=== PATIENT | female | born 1950 | race Caucasian/White ===

== ENCOUNTER → 2024-01-16 07:27 | Outpatient (REF) | payer MEDICARE, SELFPAY | LOC: EMG 07:27 | PROVIDERS: ATTENDING PHYSICIAN Pain Medicine Interventional Pain Medicine; FAMILY PHYSICIAN Physician Assistant Medical | DX: G56.02 Carpal tunnel syndrome, left upper limb (principal); R20.2 Paresthesia of skin | CPT/HCPCS: 95886; 95911 ==

== ENCOUNTER → 2024-03-15 10:16 | Outpatient (REF) | payer MEDICARE, SELFPAY | LOC: PAVMRI 10:16 | PROVIDERS: ATTENDING PHYSICIAN Physician Assistant Surgical; FAMILY PHYSICIAN Physician Assistant Medical | DX: M54.16 Radiculopathy, lumbar region (principal); M54.50 Low back pain, unspecified; M48.061 Spinal stenosis, lumbar region without neurogenic claudication; M47.817 Spondylosis without myelopathy or radiculopathy, lumbosacral region; M41.86 Other forms of scoliosis, lumbar region | CPT/HCPCS: 72148 ==

== ENCOUNTER 2024-03-25 18:33 | Emergency (ER) | payer MEDICARE, SELFPAY ==
[2024-03-25 18:37] VITALS: BP 108/80
--- NOTE | 2024-03-25 20:14 | ED.GENMED ---
History of Present Illness
General
Chief Complaint: Abdominal Pain
Source: patient
Exam Limitations: none
Time Seen by Provider: 03/25/24 19:53
Nursing documentation reviewed up to this point in time: agreed with
Travel History
Have you had any contact with someone who has COVID-19?: No
Do you have any symptoms of coronavirus? Fever > 100 degrees, chills, cough, shortness of breath, sore throat, loss of taste or smell, muscle aches, or headache?: No
History of Present Illness
History of Present Illness:
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 Abdominal pain described as sharp, nonradiating, without any
alleviating or exacerbating factors. Denies vomiting. Denies trauma. Patient has had normal bowel movements since onset of symptoms, without improvement her pain. However, patient states that gradually, her pain has improved since arrival to ED.
At the time exam ED, patient states that her abdominal pain is completely gone. Denies previous history of similar symptoms.
Past History
Past History
ED Past Medical History: GERD, HTN and Other (Arthritis)
ED Past Surgical History: Orthopedic and Other
Social History
Tobacco: Non-smoker
Review of Systems
Review of Systems
Allergies reviewed?: Yes
All Other Systems: ROS reviewed and negative except as documented in HPI and ROS
Constitutional: Reports no symptoms; Denies fever
Respiratory: Reports no symptoms
Cardiac: Reports no symptoms
ABD/GI: Reports abdominal pain; Denies nausea, vomiting or diarrhea
Musculoskeletal: Reports no symptoms
Skin: Reports no symptoms
Neurological: Reports no symptoms
Phy Exam
Physical Exam
Physical Exam:
Physical Exam
General: no apparent distress, not acutely ill. afebrile
Head: nc/at. eomi
Neck: supple. no meningeal signs.
Heart: s1/s2 regular rate and rhythm, no murmur. equal radial pulses.
Lungs: no acute respiratory distress. clear bilaterally
Abdomen: normal bowel sounds. not tender. no distention.
Neuro: alert and oriented. no focal neurological deficits
Skin: no rash
Psychiatric: well kept. interactive and cooperative
Extremities: no edema. no calf tenderness.
Course
Orders/Labs/Results
Orders:
Orders
03/25/24 20:04
CR Obstruct Series W/pa Chest Urgent
Comment:
Reason For Exam: abdominal pain
Vital Signs
Initial and Last Documented VS:
Initial Vital Signs
Temp Pulse Resp BP Pulse Ox
97.8 F 77 18 108/80 100
03/25/24 18:37 03/25/24 18:37 03/25/24 18:37 03/25/24 18:37 03/25/24 18:37
Last Documented Vital Signs
Temp Pulse Resp BP Pulse Ox
97.8 F 77 18 108/80 100
03/25/24 18:37 03/25/24 18:37 03/25/24 18:37 03/25/24 18:37 03/25/24 18:37
MDM/Problems Addressed
MDM/Problems Addressed:
Patient with nonspecific abdominal pain, of sudden onset, which now has resolved spontaneously. Discussed possibly obtaining x-ray to evaluate for potential ileus versus partial small bowel obstruction versus other etiology. However, this time,
patient and spouse feel comfortable going home without any further workup. Will return to ED with recurrent abdominal pain.
*Critical Care Note
Total Time (30-74mins, 75-104mins- exclusive of procedures): Not Applicable
ED Attending Note
-
Portions of this chart may have been created with voice recognition software.� Occasional wrong word or��sound alike� substitutions may have occurred due to the inherent limitations of voice recognition software.
Discharge Plan
Departure
Patient Disposition: Home (Routine Discharge)
Date of Disposition: 03/25/24
Time of Disposition: 20:14
Patient with high blood pressure during this ER visit?: No
Discharge Problem:
Abdominal pain
Instructions: Abdominal Pain
Prescriptions:
No Action
multivitamin Tablet
1 tab PO DAILY
fluoxetine 40 mg Capsule
40 mg PO DAILY
pravastatin 40 mg Tablet
40 mg PO DAILY
donepezil 10 mg Tablet
10 mg PO DAILY
pantoprazole [Protonix] 40 mg Tablet,Delayed Release (Dr/Ec)
40 mg PO DAILY
vitamin B complex Tablet
1 tab PO DAILY
aspirin 81 mg Tablet
81 mg PO DAILY
lisinopril-hydrochlorothiazide 10-12.5 mg Tablet
1 tab PO DAILY
gabapentin 300 mg Tablet
900 mg PO HS
clopidogrel 75 mg Tablet
75 mg PO DAILY Qty: 19 0RF
Referrals:
Barb Bradshaw PA-C [Family Provider] -
Activity Restrictions/Additional Instructions:
As discussed, please follow up with your primary care physician for further evaluation and treatment.
Interventions
Interventions:
*General Assessment Last Done: 03/25/24 18:40
*Nursing Disposition Last Done: 03/25/24 20:21
MU-Yqhfwf-Sohvsnnurd Assessment Last Done: 03/25/24 20:20
Discharge Date and Time
Discharge Date/Time: 03/25/24 20:21
Print Language: [place]
== END 2024-03-25 20:21 | disposition home or self-care (01) ==
LOC: EMR 18:33
PROVIDERS: EMERGENCY PHYSICIAN Emergency Medicine; FAMILY PHYSICIAN Physician Assistant Medical
DX: R10.9 Unspecified abdominal pain (principal); R14.0 Abdominal distension (gaseous); Z98.84 Bariatric surgery status
CPT/HCPCS: 99281

== ENCOUNTER → 2024-07-17 15:29 | Outpatient (REF) | payer MEDICARE, SELFPAY | LOC: HWRAD 15:29 | PROVIDERS: ATTENDING PHYSICIAN Physician Assistant Medical | DX: R07.81 Pleurodynia (principal) | CPT/HCPCS: 71101 ==

== ENCOUNTER → 2024-08-16 10:09 | Outpatient (REF) | payer MEDICARE, SELFPAY | LOC: HWWDC 10:09 | PROVIDERS: ATTENDING PHYSICIAN Physician Assistant Medical | DX: Z78.0 Asymptomatic menopausal state (principal); Z12.31 Encounter for screening mammogram for malignant neoplasm of breast | CPT/HCPCS: 77063; 77067; 77080 ==

== ENCOUNTER → 2025-02-18 16:25 | Outpatient (REF) | payer MEDICARE, SELFPAY | LOC: HWRAD 16:25 | PROVIDERS: ATTENDING PHYSICIAN Internal Medicine Rheumatology; FAMILY PHYSICIAN Physician Assistant Medical | DX: M79.641 Pain in right hand (principal); M79.642 Pain in left hand; M79.673 Pain in unspecified foot | CPT/HCPCS: 73130; 73630 ==

== ENCOUNTER 2025-09-08 11:47 | Emergency (ER) | payer MEDICARE, SELFPAY ==
[2025-09-08 11:50] VITALS: BP 109/68
[2025-09-08 12:33] LABS: COVID-19 Antigen Negative (Negative)
--- NOTE | 2025-09-08 13:23 | ED.GENMED ---
History of Present Illness
General
Chief Complaint: Cough
Source: patient and spouse
Time Seen by Provider: 09/08/25 13:15
History of Present Illness
History of Present Illness:
74-year-old female with past medical history of mild cognitive impairment, hypertension, gcm-[id number]-sohhvqetq diabetes presenting to the emergency department for evaluation after having a continued cough for the last 3 weeks despite completing a
course of a Z-Joe and prednisone taper. She states the cough is somewhat mild and nonproductive, no associated fevers, chills, rigors. 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 No recent travel or known sick contacts.
Patient is without any other concerns presently. She notes a history of former smoking but quit at least 10 years ago.
Past History
Past History
ED Past Medical History: GERD, HTN and Other (Arthritis)
ED Past Surgical History: Orthopedic and Other
Social History
Tobacco: Non-smoker
Alcohol: None
Drug: None
Personal:
Living: with family
Review of Systems
Review of Systems
All Other Systems: ROS reviewed and negative except as documented in HPI and ROS
Phy Exam
Physical Exam
Physical Exam:
GENERAL: Alert , in no apparent distress
HEAD: Normocephalic atraumatic
EYE: conjunctiva clear
NECK: Supple
ENT: o/p clr, mmm.
CARDIAC: Regular rate and rhythm
LUNGS: Clear breath sounds bilaterally, no acute respiratory distress, no wheezes/rales/rhonchi
NEUROLOGICAL: Alert and oriented
SKIN: Warm and dry, skin intact.
MUSCULOSKELETAL: well perfused.
PSYCH: Normal and appropriate interaction.
Scores
Heart Failure Risk
Heart Failure Risk Score: Not Applicable
Heart Score for Chest Pain Patients
STEMI patient?: Not applicable
Withdrawal Assessment of Alcohol
Withdrawal Assessment Completed?: Not applicable
Course
Orders/Labs/Results
Orders:
Orders
09/08/25 11:53
CR Chest - 2 Views Urgent
Comment:
Reason For Exam: cough x3 weeks
09/08/25 11:55
COVID-19 Antigen Urgent
Source: Nasal Swab
Influenza A+B Rapid Molecular Urgent
CHERIE Source: Nasal Swab
Specimen Description:
Vital Signs
Initial and Last Documented VS:
Initial Vital Signs
Temp Pulse Resp BP Pulse Ox
98.3 F 95 17 109/68 98
09/08/25 11:50 09/08/25 11:50 09/08/25 11:50 09/08/25 11:50 09/08/25 11:50
Last Documented Vital Signs
Temp Pulse Resp BP Pulse Ox
98.5 F 82 20 141/75 96
09/08/25 13:33 09/08/25 13:33 09/08/25 13:33 09/08/25 13:33 09/08/25 13:33
MDM/Problems Addressed
Differential Diagnosis Includes:
Covid
Flu
Other Viral Etiology
Pneumonia
Bronchitis
MDM/Problems Addressed:
74-year-old female presenting to the ER for evaluation of cough for the last 3 weeks, no improvement with Z-Joe and a steroid taper. COVID and flu testing negative, chest x-ray shows a right upper lobe lung infiltrate consistent with pneumonia. I
did consider obtaining CT imaging given the chest x-ray findings however patient is in no acute respiratory distress, afebrile and overall well-appearing. Will prescribe a course of cefdinir and doxycycline. Patient currently does not have a
primary care provider so information was sent to the primary care referral line for patient to help obtain a primary care provider. I did discuss with the patient that if she is not feeling any better within the next 72 hours that I would recommend
she return to the ER for further reevaluation to ensure no other complications. Patient and spouse both expressed understanding.
*Radiology
Radiology exam reviewed: preliminary read by ED provider (RUL pneumonia)
*Pulse Oximetry
SaO2: 98
Oxygen Mode of Delivery: Room air
Patient hypoxic: no
*Critical Care Note
Total Time (30-74mins, 75-104mins- exclusive of procedures): Not Applicable
ED Attending Note
-
Portions of this chart may have been created with voice recognition software.� Occasional wrong word or��sound alike� substitutions may have occurred due to the inherent limitations of voice recognition software.
Discharge Plan
Departure
Patient Disposition: Home (Routine Discharge)
Date of Disposition: 09/08/25
Time of Disposition: 13:23
Patient with high blood pressure during this ER visit?: No
Discharge Problem:
Pneumonia
Instructions: Pneumonia, Adult (DC)
Prescriptions:
New
cefdinir 300 mg capsule
300 mg PO BID 10 Days Qty: 20 0RF
doxycycline hyclate 100 mg capsule
100 mg PO BID 10 Days Qty: 20 0RF
No Action
multivitamin Tablet
1 tab PO DAILY
fluoxetine 40 mg Capsule
40 mg PO DAILY
pravastatin 40 mg Tablet
40 mg PO DAILY
donepezil 10 mg Tablet
10 mg PO DAILY
pantoprazole [Protonix] 40 mg Tablet,Delayed Release (Dr/Ec)
40 mg PO DAILY
vitamin B complex Tablet
1 tab PO DAILY
aspirin 81 mg Tablet
81 mg PO DAILY
lisinopril-hydrochlorothiazide 10-12.5 mg Tablet
1 tab PO DAILY
gabapentin 300 mg Tablet
900 mg PO HS
clopidogrel 75 mg Tablet
75 mg PO DAILY Qty: 19 0RF
Referrals:
NONE,* [Family Provider, Internal Medicine]
Interventions
Interventions:
*Risk Screen - Suicide Last Done: 09/08/25 11:52
*General Assessment Last Done: 09/08/25 11:52
*Neglect/Abuse Screening Last Done: 09/08/25 11:52
*ED- Fall Risk Assessment Last Done: 09/08/25 13:35
*ED COVID-19 Vaccine History Last Done: 09/08/25 11:52
*ED Influenza Vaccine History Last Done: 09/08/25 11:52
*Nursing Disposition Last Done: 09/08/25 13:35
ED- Pulmonary Assessment Last Done: 09/08/25 13:33
Discharge Date and Time
Discharge Date/Time: 09/08/25 13:36
Print Language: AZERBAIJANI
[2025-09-08 13:33] VITALS: BP 141/75; BMI 18.9
== END 2025-09-08 13:36 | disposition home or self-care (01) ==
LOC: EMR 11:47
PROVIDERS: EMERGENCY PHYSICIAN Student in an Organized Health Care Education/Training Program
DX: J18.9 Pneumonia, unspecified organism (principal); E11.9 Type 2 diabetes mellitus without complications; I10 Essential (primary) hypertension; Z11.52 Encounter for screening for COVID-19
CPT/HCPCS: 99284; 71046; 87502; 87811

== ENCOUNTER 2025-09-10 23:00 | Inpatient (IN) | payer MEDICARE, SELFPAY ==
[2025-09-10] VITALS (7 sets, daily range): BP systolic 107–133; BP diastolic 65–80; BMI 25.4
--- NOTE | 2025-09-10 18:48 | ED.GENMED ---
History of Present Illness
<XIAO Page - Last Filed: 09/11/25 01:35>
General
Chief Complaint: Weakness
Exam Limitations: none
Time Seen by Provider: 09/10/25 18:07
Nursing documentation reviewed up to this point in time: agreed with
History of Present Illness
History of Present Illness:
Patient is 74-year-old female presents back to the ER with cough. Patient has had cough for the past 3 weeks. Her who is a physician put her on Medrol Dosepak and Zithromax about relief.
Patient was seen in the ER 2 days ago dx with a RUL pneumonia and prescribed cefdinir and doxycycline. Patient continues to have cough. daughter reports our patient vomited last night and today which prompted her to come back to the ER. She was
scheduled to see her family doctor today at 5:30 pm but they recommended to come to the ER. Patient herself denies any shortness of breath however her daughter feels that she is short winded with exertion.
also at bedside reports patient has some cognitive issues early dementia and he is not sure if she is taking antibiotics as recommended in addition he reports she is very weak.
Past History
<XIAO Page - Last Filed: 09/11/25 01:35>
Past History
ED Past Medical History: GERD, HTN and Other (Arthritis)
ED Past Surgical History: Orthopedic and Other
Social History
Tobacco: Non-smoker
Alcohol: None
Drug: None
Personal:
Living: with family
Phy Exam
<XIAO Page - Last Filed: 09/11/25 01:35>
General Physical Exam
General Presentation: no apparent distress
General age: appears stated age
General Skin: warm and dry
General Habitus: elderly
General Mental: alert
General Hydration: appears well hydrated
Cardiovascular Exam
Cardiovascular Exam: regular rate/rhythm, no murmur and normal peripheral pulses
Pulmonary Exam
Pulmonary Exam: lungs clear and no respiratory distress
Neurological Exam
Neurological Exam: alert and oriented x3
Musculoskeletal Exam
Musculoskeletal Exam: full ROM
Skin Exam
Skin Exam: normal color and warm/dry
Psychiatric Exam
Psychiatric Exam: normal mood/affect
Course
<XIAO Page - Last Filed: 09/11/25 01:35>
Orders/Labs/Results
Orders:
Orders
09/10/25 18:40
IV Insert/Care/Rem.- Treatment PRN
09/10/25 18:41
Electrocardiogram (*1) Stat
Reason for Study: Other
Other Reason for Exam: chest pain
Cardiac Monitoring- Treatment ONCE
EKG- Treatment ONCE
09/10/25 18:55
CT Chest W/o Iv Contrast Urgent
Comment:
Reason For Exam: cough recent pneumonia?
09/10/25 19:08
0.9% Sodium Chloride 1000 ml [Nss] 1,000 ml IV BOLUS
09/10/25 19:14
Complete Blood Count/With Diff Urgent
Comprehensive Metabolic Panel Urgent
09/10/25 21:05
Cefepime HCl [Maxipime] 1,000 mg IV NOW STA
09/10/25 21:18
Sterile Water [Sterile Water For Injection] 10 ml .ROUTE .STK-MED ONE
Vancomycin [Vancocin] 1,500 mg 0.9% Sodium Chloride 500 ml [Nss] 500 ml IV NOW
09/10/25 22:32
Admit/Transfer Patient As Directed
Co-Sign Provider:
Level of Care: Inpatient admission
Assign to:: Medical/Surgical
Physician / Group: htay
Diagnosis: Partially treated severe complex PNA @ [facility]
Reason for Hospitalization: Partially treated severe complex PNA @ [facility]
Expected length of stay greater than two midnights?: Yes
ELOS- Estimated Length of Stay in days: 3
I certify the patient meets the requirements for IP care: Yes
09/10/25 22:34
Code Status As Directed
Resuscitation Status: Full Code
09/11/25 01:22
Lactic Acid Q6H
09/11/25 01:22
Consult Notification Routine
Specialty to Notify: Infectious Disease
Consult Notification Routine
Specialty to Notify: Pulmonary
INFECTIOUS DISEASE CONSULT Routine
Consulting Provider: Adriana Bertrand
Was physician already notified: No
Reason for consult: Partially treated severe complex PNA @ R[facility] - failed OP ABx
PULMONARY CONSULT Routine
Consulting Provider: Katherin Jones
Was physician already notified: No
Reason for consult: Partially treated severe complex PNA @ R[facility]
Legionella Urinary Antigen Routine
CHERIE Source: Urine
Specimen Description:
Respiratory Culture/Gram Stain Urgent
CHERIE Source: Sputum
Specimen Description:
Strep pneumoniae Antigen Routine
CHERIE Source: Urine
Specimen Description:
Activity As Directed
Activity Level: Out of Bed-Early Mobility
Intake/ Output As Directed
Frequency: Per unit guidelines
Vital Signs As Directed
Frequency: Per unit guidelines
Weight As Directed
Frequency: Once
Comment: on admission
Pt Eval And Treat Routine
Activity Level: With Assistance
DX Deep Vein Thrombosis Video Routine
09/11/25 Breakfast
Cholesterol Lowering
Cholesterol Lowering: Sodium, 2 Gram
Basic Metabolic Panel IN AM
Complete Blood Count/No Diff IN AM
Cefepime HCl [Maxipime] 2,000 mg IV Q8H
09/11/25 08:00
Aspirin Low Dose EC [Aspir Low (Enteric Coated)] 81 mg PO DAILY
Donepezil HCl [Aricept] 10 mg PO DAILY
Doxycycline [Vibramycin] 100 mg PO BID
Fluoxetine HCl [Prozac] 40 mg PO DAILY
Guaifenesin [Mucinex] 600 mg PO Q12
Pantoprazole [Protonix] 40 mg PO DAILY
09/11/25 18:00
Enoxaparin Sodium [Lovenox] 40 mg SC QPM
09/11/25 22:00
Gabapentin [Neurontin] 900 mg PO HS
Pravastatin Sodium [Pravachol] 40 mg PO HS
Abnormal Lab Results
09/10/25
19:14
WBC 14.4 H 10^3/uL
(4.8-10.8)
RBC 3.44 L 10^6/uL
(4.20-5.40)
Hgb 9.1 L g/dL
(12.0-16.0)
Hct 28.1 L %
(37.0-47.0)
MCH 26.5 L pg
(27.0-31.0)
MCHC 32.4 L g/dL
(33.0-37.0)
Abs Immat Gran (auto) 0.1 H 10^3/uL
(0-0.05)
Absolute Neuts (auto) 11.5 H 10^3/uL
(1.4-6.5)
Absolute Monos (auto) 0.9 H 10^3/uL
(0.1-0.6)
Immature Gran % 0.8 H %
(0-0.5)
Neutrophils % 79.8 H %
(42.2-75.2)
Lymphocytes % 11.7 L %
(20.5-51.1)
BUN 22 H mg/dl
(7-17)
Glucose 112 H mg/dl
(70-99)
Total Protein 6.2 L g/dl
(6.3-8.2)
Albumin 3.2 L g/dl
(3.5-5.0)
10/14/25 19:14
09/10/25 19:14
Vital Signs
Initial and Last Documented VS:
Initial Vital Signs
Temp Pulse Resp BP Pulse Ox
98.5 F 86 16 125/77 98
09/10/25 18:00 09/10/25 18:00 09/10/25 18:00 09/10/25 18:00 09/10/25 18:00
Last Documented Vital Signs
Temp Pulse Resp BP Pulse Ox
98.5 F 71 17 124/80 96
09/10/25 19:04 09/11/25 01:00 09/11/25 01:00 09/11/25 01:00 09/11/25 01:00
Employee Communications Manager consulted with Physician
Employee Communications Manager consulted with physician?: Yes
Name of Physician Consulted: Cesar
<Brady Guerrero, DO - Last Filed: 09/10/25 21:17>
Orders/Labs/Results
Orders:
Orders
09/10/25 18:40
IV Insert/Care/Rem.- Treatment PRN
09/10/25 18:41
Electrocardiogram (*1) Stat
Reason for Study: Other
Other Reason for Exam: chest pain
Cardiac Monitoring- Treatment ONCE
EKG- Treatment ONCE
09/10/25 18:55
CT Chest W/o Iv Contrast Urgent
Comment:
Reason For Exam: cough recent pneumonia?
09/10/25 19:08
0.9% Sodium Chloride 1000 ml [Nss] 1,000 ml IV BOLUS
09/10/25 19:14
Complete Blood Count/With Diff Urgent
Comprehensive Metabolic Panel Urgent
09/10/25 21:05
Cefepime HCl [Maxipime] 1,000 mg IV NOW STA
09/10/25 21:18
Sterile Water [Sterile Water For Injection] 10 ml .ROUTE .STK-MED ONE
Vancomycin [Vancocin] 1,500 mg 0.9% Sodium Chloride 500 ml [Nss] 500 ml IV NOW
09/10/25 22:32
Admit/Transfer Patient As Directed
Co-Sign Provider:
Level of Care: Inpatient admission
Assign to:: Medical/Surgical
Physician / Group: htay
Diagnosis: Partially treated severe complex PNA @ [facility]
Reason for Hospitalization: Partially treated severe complex PNA @ [facility]
Expected length of stay greater than two midnights?: Yes
ELOS- Estimated Length of Stay in days: 3
I certify the patient meets the requirements for IP care: Yes
09/10/25 22:34
Code Status As Directed
Resuscitation Status: Full Code
09/11/25 01:22
Lactic Acid Q6H
09/11/25 01:22
Consult Notification Routine
Specialty to Notify: Infectious Disease
Consult Notification Routine
Specialty to Notify: Pulmonary
INFECTIOUS DISEASE CONSULT Routine
Consulting Provider: Adriana Bertrand
Was physician already notified: No
Reason for consult: Partially treated severe complex PNA @ R[facility] - failed OP ABx
PULMONARY CONSULT Routine
Consulting Provider: Katherin Jones
Was physician already notified: No
Reason for consult: Partially treated severe complex PNA @ R[facility]
Legionella Urinary Antigen Routine
CHERIE Source: Urine
Specimen Description:
Respiratory Culture/Gram Stain Urgent
CHERIE Source: Sputum
Specimen Description:
Strep pneumoniae Antigen Routine
CHERIE Source: Urine
Specimen Description:
Activity As Directed
Activity Level: Out of Bed-Early Mobility
Intake/ Output As Directed
Frequency: Per unit guidelines
Vital Signs As Directed
Frequency: Per unit guidelines
Weight As Directed
Frequency: Once
Comment: on admission
Pt Eval And Treat Routine
Activity Level: With Assistance
DX Deep Vein Thrombosis Video Routine
09/11/25 Breakfast
Cholesterol Lowering
Cholesterol Lowering: Sodium, 2 Gram
Basic Metabolic Panel IN AM
Complete Blood Count/No Diff IN AM
Cefepime HCl [Maxipime] 2,000 mg IV Q8H
09/11/25 08:00
Aspirin Low Dose EC [Aspir Low (Enteric Coated)] 81 mg PO DAILY
Donepezil HCl [Aricept] 10 mg PO DAILY
Doxycycline [Vibramycin] 100 mg PO BID
Fluoxetine HCl [Prozac] 40 mg PO DAILY
Guaifenesin [Mucinex] 600 mg PO Q12
Pantoprazole [Protonix] 40 mg PO DAILY
09/11/25 18:00
Enoxaparin Sodium [Lovenox] 40 mg SC QPM
09/11/25 22:00
Gabapentin [Neurontin] 900 mg PO HS
Pravastatin Sodium [Pravachol] 40 mg PO HS
Abnormal Lab Results
09/10/25
19:14
WBC 14.4 H 10^3/uL
(4.8-10.8)
RBC 3.44 L 10^6/uL
(4.20-5.40)
Hgb 9.1 L g/dL
(12.0-16.0)
Hct 28.1 L %
(37.0-47.0)
MCH 26.5 L pg
(27.0-31.0)
MCHC 32.4 L g/dL
(33.0-37.0)
Abs Immat Gran (auto) 0.1 H 10^3/uL
(0-0.05)
Absolute Neuts (auto) 11.5 H 10^3/uL
(1.4-6.5)
Absolute Monos (auto) 0.9 H 10^3/uL
(0.1-0.6)
Immature Gran % 0.8 H %
(0-0.5)
Neutrophils % 79.8 H %
(42.2-75.2)
Lymphocytes % 11.7 L %
(20.5-51.1)
BUN 22 H mg/dl
(7-17)
Glucose 112 H mg/dl
(70-99)
Total Protein 6.2 L g/dl
(6.3-8.2)
Albumin 3.2 L g/dl
(3.5-5.0)
09/10/25 19:14
09/10/25 19:14
Vital Signs
Initial and Last Documented VS:
Initial Vital Signs
Temp Pulse Resp BP Pulse Ox
98.5 F 86 16 125/77 98
09/10/25 18:00 09/10/25 18:00 09/10/25 18:00 09/10/25 18:00 09/10/25 18:00
Last Documented Vital Signs
Temp Pulse Resp BP Pulse Ox
98.5 F 71 17 124/80 96
09/10/25 19:04 09/11/25 01:00 09/11/25 01:00 09/11/25 01:00 09/11/25 01:00
<XIAO Page - Last Filed: 09/11/25 01:35>
MDM/Problems Addressed
Differential Diagnosis Includes:
Not limited to viral syndrome pneumonia fellow patient antibiotics, neoplasm
MDM/Problems Addressed:
Patient is a 74-year-old female who has had cough for the past several weeks presented with persistent cough. Patient was seen here 2 days ago prescribed cefdinir no improvement patient feeling weak as per family. Intermittent vomiting white count
elevated 14,000 x-ray concerning for right lung consolidation possibly complex pneumonia but concerning for neoplasm. Patient is a former smoker. With weakness and persistent symptoms despite antibiotics we will admit. Case discussed admitting
hospital
Chronic conditions affecting care:
Former smoker
<XIAO Page - Last Filed: 09/11/25 01:35>
*Radiology
Radiology exam reviewed: radiology read reviewed
*Pulse Oximetry
SaO2: 98
Oxygen Mode of Delivery: Room air
Patient hypoxic: no
*EKG
Interpreted by ED Provider?: Yes
Heart Rate: 74
Rate: normal
Rhythm: sinus
Ischemia: no ischemia
*Critical Care Note
Total Time (30-74mins, 75-104mins- exclusive of procedures): Not Applicable
ED Attending Note
<XIAO Page - Last Filed: 09/11/25 01:35>
-
Portions of this chart may have been created with voice recognition software.� Occasional wrong word or��sound alike� substitutions may have occurred due to the inherent limitations of voice recognition software.
<Brady Guerrero DO - Last Filed: 09/10/25 21:17>
ED Attending Note
Patient seen and examined by attending physician: Yes
I performed the substantive portion of visit, reviewed & personally made and approve the management plan that is documented in note by myself or YASEMIN.: Yes
ED Attending Note:
I evaluated the patient bedside. I am concerned about the appearance on the CT. She states that she has lost 5 pounds unintentionally and has not been eating well. She has failed outpatient antibiotics and I am concerned that maybe she does not
have pneumonia but rather has a malignancy. Will plan to keep in the hospital as she has been failing outpatient management.
Discharge Plan
Departure
Patient Disposition: Admit
Date of Disposition: 09/10/25
Time of Disposition: 21:10
Admit to: Med/Surg
Admit to doctor: hospitalist
Presentation/result/management discussed w/ accepting MD/DO: Hospitalist
Patient with high blood pressure during this ER visit?: No
Condition: Fair
Covid-19: Not Applicable
Discharge Problem:
Pneumonia, Weakness
Interventions
Interventions:
*Risk Screen - Suicide Last Done: 09/10/25 18:01
*General Assessment Last Done: 09/10/25 19:05
*Neglect/Abuse Screening Last Done: 09/10/25 18:01
*ED- Fall Risk Assessment Last Done: 09/10/25 19:05
*ED COVID-19 Vaccine History Last Done: 09/10/25 19:05
*ED Influenza Vaccine History Last Done: 09/10/25 19:05
*Nursing Disposition Last Done: 09/11/25 01:23
ED- Cardiac Assessment Last Done: 09/10/25 19:33
ED- Neurological Assessment Last Done: 09/10/25 19:33
ED- Pulmonary Assessment Last Done: 09/10/25 19:33
Discharge Date and Time
Discharge Date/Time: 09/11/25 01:23
[2025-09-10 19:22] LABS: Hematocrit 28.1 % (37.0-47.0); Hemoglobin 9.1 g/dL (12.0-16.0); Mean Corp Hgb Conc. 32.4 g/dL (33.0-37.0); Mean Corpuscular Volume 81.7 fL (81.0-99.0); Nucleated Red Blood Cells % 0 %; Platelet Count 335 10^3/uL (130-400); Red Cell Dist. Width 13.3 % (11.5-14.5)
[2025-09-10] MEDS: NSS 1000 IV (19:27)
[2025-09-10 19:35] LABS: ALT (SGPT) 22 U/L (0-35); AST (SGOT) 23 U/L (14-36); Albumin 3.2 g/dl (3.5-5.0); Alkaline Phosphatase 75 U/L (38-126); Blood Urea Nitrogen 22 mg/dl (7-17); Calcium 9.0 mg/dl (8.4-10.2); Carbon Dioxide 26 mmol/L (22-30); Chloride 105 mmol/L (98-107); Estimated Creatinine Clearance 49 ml/min; Glucose 112 mg/dl (70-99); Potassium 3.9 mmol/L (3.5-5.1); Sodium 135 mmol/L (135-145); Total Protein 6.2 g/dl (6.3-8.2); eGFR > 60.00
[2025-09-10] MEDS: MAXIPIME 1000 MG IV (21:28)
[2025-09-10] MEDS: VANCOCIN 530 MG IV (21:49)
--- NOTE | 2025-09-10 22:05 | HPS.HSE ---
Family Physician
-
Family Physician: Barb Bradshaw
Chief Complaint
-
back to the ER with cough.
History of Present Illness
74F HX Dementia(Donepezil) HTN( Lisinopril/HCTZ) Depression ( Fluoxetine) DLP ( Prvastatin) seen at ER :
- presents back to the ER with cough
- had cough for the past 3 weeks. Physician spouse started her on Medrol Dosepak and Zithromax about relief.
- she was seen in the ER 2 days ago- Dxed RUL PNA started cefdinir and doxycycline but cough persist
- daughter reports patient vomited last night prompted her to come back to the ER. S
- family doctor recommended to come to the ER.
ROS:
denies any shortness of breath however her daughter feels that she is short winded with exertion.
also at bedside reports patient has some cognitive issues early dementia .
Medical History
Past Medical History
Past Medical History: Reports Other
Additional Past Medical History:
Hypertension
DDD
Peripheral Polyneuropathy
Osteoarthritis
Obesity s/p Gastric Bypass
GERD / Carias's Dysplasia
Past Surgical History: Reports Other
Additional Past Surgical History:
Gastric Bypass
Lumbar Laminectomy / Discectomy
Cataract Extractions
Right CHIDI
Hernia Repair
Trigger Finger Surgery
Social History
Tobacco: Former Smoker (Quit 20 years ago. Approx 40 pack years total use.)
Alcohol: Former (History of alcohol overuse. Quit drinking entirely 1 year ago.)
Personal:
Living: With Family
Family History
Family History: Other (Father: Multiple TIA / CVAs, Vascular Dementia)
Allergies / Home Medications
Allergies reflects when Allergies were last updated in [facility].
Home Medications with original date entered in [facility]
Allergy/Medication List:
Allergies
Allergy/AdvReac Type Severity Reaction Status Date / Time
No Known Allergies Allergy Verified 12/25/22 18:30
Home Medications
aspirin 81 mg tablet 81 mg PO DAILY 12/25/22
donepezil 10 mg tablet 10 mg PO DAILY 12/25/22
fluoxetine 40 mg capsule 40 mg PO DAILY 12/25/22
gabapentin 300 mg tablet 900 mg PO HS 12/25/22
lisinopril 10 mg-hydrochlorothiazide 12.5 mg tablet 1 tab PO DAILY 12/25/22
multivitamin 1 tab PO DAILY 12/25/22
pantoprazole 40 mg tablet,delayed release (Protonix) 40 mg PO DAILY 12/25/22
pravastatin 40 mg tablet 40 mg PO DAILY 12/25/22
vitamin B complex 1 tab PO DAILY 12/25/22
Review of Systems
-
Constitutional: Reports No Symptoms
EENT: Reports No Symptoms
Respiratory: Reports See HPI and Cough
Cardiac: Reports No Symptoms
Abdomen/GI: Reports Vomiting (once )
: Reports No Symptoms
Musculoskeletal: Reports No Symptoms
Skin: Reports No Symptoms
Neurological: Reports No Symptoms
Endocrine: Reports No Symptoms
Hematologic/Lymphatic: Reports No Symptoms
Psych: Reports No Symptoms
Physical Exam
Vital Signs
Vital Signs
Temp Pulse Resp BP Pulse Ox
98.5 F 75 15 119/74 97
09/10/25 19:04 09/10/25 21:00 09/10/25 21:00 09/10/25 21:00 09/10/25 21:00
Physical Exam
General: Well Developed, Well Nourished and No Apparent Distress
HEENT: NormoCephalic, Moist mucous membranes and Atraumatic
Respiratory: Clear
Cardiac: S1/S2 and Regular Rhythm; No Murmur or Rub
GI: Soft, Non Tender, Non Distended and Normal Bowel Sounds; No Organomegaly
Rectal: Deferred by Provider
Musculoskeletal: No Clubbing, No Cyanosis and No Edema
Skin: No Rash
Neuro: Nonfocal/grossly intact
Laboratory Results
-
09/10/25 19:14
09/10/25 19:14
Laboratory Results
Total Bilirubin 0.2 mg/dl (0.2-1.3) 09/10/25 19:14
AST 23 U/L (14-36) 09/10/25 19:14
ALT 22 U/L (0-35) 09/10/25 19:14
Alkaline Phosphatase 75 U/L (38-126) 09/10/25 19:14
Impression/Plan
-
09/10/25
18:00
Temp 98.5 F
Pulse 86
Resp Rate 16
Blood pressure 125/77
SaO2 98
Oxygen Mode of Delivery Room air
Relevant Data
09/08/25 09/10/25
11:55 19:14
WBC 14.4 H
Hgb 9.1 L
MCV 81.7
BUN 22 H
Creatinine 0.7
eGFR > 60.00
Albumin 3.2 L
SARS-CoV-2 Antigen Negative
09/08/25 NEG Flu A & B, NEG Covid
09/10/25 CT Chest W/o Iv Contrast
1. Severe right lung consolidation as described.
Findings may reflect severe complex pneumonia, although underlying neoplasm cannot be excluded.
Continued short-term imaging follow-up after treatment is recommended, including PET/CT if findings do not resolve.
The [facility] Advisory Board will be notified.
2. Otherwise, no convincing evidence for metastatic disease in the chest within the limits of unenhanced CT.
09/08/25
Probable right upper lobe pneumonia.
Repeat examination 2 weeks following treatment is recommended to confirm improvement or resolution. New.
Last hospitalist admission: 12/25/2022 - 12/27/2022
DISCHARGE DIAGNOSIS:
1. Transient ischemic attack.
2. Blurry vision right eye.
3. Slightly elevated liver function tests.
4. Hypertension.
5. History of gastric bypass.
ASSESSMENT & PLAN
Pending Rx reconciliation
Partially treated severe complex PNA @ [facility]
- lack of significant clinical progress ( S/p Medrol dose pack & Azitrhomycin then Doxy + Cefdinir)
- underlying neoplasm cannot be excluded.
- POS Cough
- afebrile leucocytosis
- Not hypoxic
- Empiric IV CFP and PO Doxy
- Pul and ID consult
HX Cognitive impairment - mild dementia vs. MCI suspect Alzheimer
Mild diffuse atrophy prior Brain MRI
FHX Dementia
- c/w Donepezil
Benign Hypertension
Stable.
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
HX Polyneuropathy
- Stable at present.
- Continue current med regimen including gabapentin for pain control.
GERD
HX Gastric Bypass
DVT Px: LMWH
Full code
IP MS
Above case dw Daughter Ara Lincoln )
[2025-09-11] VITALS (7 sets, daily range): BP systolic 109–124; BP diastolic 63–80; PULSE 78; O2SAT 96; BMI 24.3; BMI 23.9
[2025-09-11] MEDS: MELATONIN 3 MG PO (02:13)
[2025-09-11] MEDS: PRAVACHOL 40 MG PO ×2 (02:13→22:26)
[2025-09-11] MEDS: NEURONTIN 900 MG PO ×2 (02:13→22:26)
[2025-09-11] MEDS: TYLENOL 650 MG PO ×2 (02:14→22:26)
[2025-09-11] MEDS: ANESTHETIC LOZENGE 1 LOZENGE PO ×2 (02:47→13:06)
--- NOTE | 2025-09-11 03:43 | TRANSFER ---
Pt transferred to 3W via stretcher. Pt ambulated to hospital bed. Pt AAOx3, oriented to room, call grossman within reach, plan of care ongoing.
[2025-09-11 05:39] LABS: Hematocrit 27.3 % (37.0-47.0); Hemoglobin 8.7 g/dL (12.0-16.0); Mean Corp Hgb Conc. 31.9 g/dL (33.0-37.0); Mean Corpuscular Volume 82.2 fL (81.0-99.0); Platelet Count 292 10^3/uL (130-400); Red Cell Dist. Width 13.2 % (11.5-14.5)
[2025-09-11] MEDS: MAXIPIME 2000 MG IV (05:47)
[2025-09-11] MEDS: STERILE WATER FOR INJECTION 10 ML IV ×3 (05:47→17:50)
[2025-09-11 06:03] LABS: Blood Urea Nitrogen 16 mg/dl (7-17); Calcium 8.7 mg/dl (8.4-10.2); Carbon Dioxide 24 mmol/L (22-30); Chloride 109 mmol/L (98-107); Estimated Creatinine Clearance 52 ml/min; Glucose 89 mg/dl (70-99); Potassium 3.6 mmol/L (3.5-5.1); Sodium 139 mmol/L (135-145); eGFR > 60.00
[2025-09-11] MEDS: PROTONIX 40 MG PO (07:33)
[2025-09-11] MEDS: MUCINEX 600 MG PO ×2 (07:33→19:54)
[2025-09-11] MEDS: ORETIC 12.5 MG PO (07:33)
[2025-09-11] MEDS: VIBRAMYCIN 100 MG PO ×2 (07:33→19:54)
[2025-09-11] MEDS: ARICEPT 10 MG PO (07:34)
[2025-09-11] MEDS: ASPIR LOW (ENTERIC COATED) 81 MG PO (07:34)
[2025-09-11] MEDS: PROZAC 40 MG PO (07:40)
[2025-09-11] MEDS: ZESTRIL 10 MG PO (07:45)
--- NOTE | 2025-09-11 09:47 | CON.PUL ---
Consultation
Consultation Request
Date/Time Consultation Requested: 09/11/2025-10:30 AM
Date/Time Consultation Performed: 09/11/2025-11 AM
Requesting Provider: Hospitalist
Performing Provider: Dr. Garcia
Reason for Consultation: Pneumonia
Medical History
-
Chief Complaint: Shortness of breath
History of Present Illness:
74-year-old former smoking female with dementia, hypertension, neuropathy, and GERD presented with cough for the past 3 weeks unresponsive to steroids and antibiotics found to have a pneumonia and pulmonary consulted for pneumonia 09/11/2025.. The
patient states that 3 weeks ago when she began with a cough. She did not have any fevers, chills, chest congestion, productive cough, hemoptysis or night sweats. She is placed on an antibiotic, but she continued to have a cough. She did not
complain of any abdominal pain but had some emesis. She states that she gagged while she was trying to eat. She did not complain of any leg swelling or focal weakness.
Past Medical History
Past Medical History: None (Dementia. Hypertension. Former fqylul-[id number]-year quit 20 years ago. Depression. Hyperlipidemia. Peripheral neuropathy. Osteoarthritis. Obesity/gastric bypass. GERD/Carias's esophagus. Lumbar laminectomy.
Cataract. Right CHIDI. Hernia repair. Trigger finger.)
Social History
Tobacco: Former Smoker ([id number] quit 10 years ago)
Alcohol: Former (Alcohol overuse-quit entirely 1 year ago)
Drug: None
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
Living: With Family
Occupational Exposures: No known asbestos exposure
Environmental Exposures: No known tuberculosis exposure-she does have tenderness-parakeets and storm
Family History
Family History: Reviewed & Not Pertinent (Father-TIAs/CVA and vascular dementia)
Allergies / Home Medications
Allergies
Allergy/AdvReac Type Severity Reaction Status Date / Time
iodine Allergy Hives Verified 09/10/25 19:16
Home Medications
�Medication �Instructions �Recorded �Confirmed �Last Taken �Type
aspirin 81 mg tablet 81 mg PO DAILY Blood clot 12/25/22 09/10/25 Unknown History
prevention/tx
donepezil 10 mg tablet 10 mg PO DAILY Neurological 12/25/22 09/10/25 Unknown History
Condition
fluoxetine 40 mg capsule 40 mg PO DAILY Mental 12/25/22 09/10/25 Unknown History
Health/Anxiety
gabapentin 300 mg tablet 900 mg PO HS Neurological Condition 12/25/22 09/10/25 Unknown History
lisinopril 10 1 tab PO DAILY Blood pressure 12/25/22 09/10/25 Unknown History
mg-hydrochlorothiazide 12.5 mg
tablet
multivitamin 1 tab PO DAILY Supplement 12/25/22 09/10/25 Unknown History
pantoprazole 40 mg tablet,delayed 40 mg PO DAILY Gastrointestinal 12/25/22 09/10/25 Unknown History
release (Protonix) issue
pravastatin 40 mg tablet 40 mg PO HS High cholesterol 12/25/22 09/10/25 Unknown History
vitamin B complex 1 tab PO DAILY Supplement 12/25/22 09/10/25 Unknown History
cefdinir 300 mg capsule 300 mg PO BID 10 days #20 caps 09/08/25 09/10/25 Unknown Rx
doxycycline hyclate 100 mg capsule 100 mg PO BID 10 days #20 caps 09/08/25 09/10/25 Unknown Rx
Review of Systems
-
Unable to Obtain full review of systems at this time due to: Other ( per HPI)
Vitals / Labs / Diagnostic Testing
Vital Signs
Temp Pulse Resp BP Pulse Ox
98.5 F 68 19 117/72 99
09/11/25 07:00 09/11/25 07:00 09/11/25 07:00 09/11/25 07:00 09/11/25 07:00
Lab Data
09/11/25 05:10
09/11/25 05:10
Diagnostic Testing:
Physical Exam
-
Exam:
Well-nourished and well-developed in no apparent distress
HEENT-atraumatic, normocephalic
Neck-supple, no JVD, no bruit
Heart-regular rate and rhythm-no murmurs, rubs or gallops
Chest-clear to auscultation, no wheezes, crackles
Back-no tenderness
Abdomen-soft, nontender, nondistended, no hepatosplenomegaly
Extremities-no cyanosis, clubbing, edema and good peripheral pulses
Integument-intact, no rashes, lesions or ecchymosis
Neurology-alert and oriented, nonfocal motor and sensory exam
Assessment
-
74-year-old former smoking female with dementia, hypertension, neuropathy, and GERD presented with cough for the past 3 weeks unresponsive to steroids and antibiotics found to have a pneumonia and pulmonary consulted for pneumonia 09/11/2025.
Tekdfycrg-fwfjnyvcd-fpyrqfwn-cannot rule out underlying lung mass
Leukocytosis
Goqyzo-wcyyfdtdfk-aakrhjubfl 8.7
Mild hyperglycemia
Conditions present prior to admission:
Dementia.
Hypertension.
Former thzmlp-12-xyrq-year quit 20 years ago.
Depression.
Hyperlipidemia.
Peripheral neuropathy.
Osteoarthritis.
Obesity/gastric bypass.
GERD/Carias's esophagus.
Lumbar laminectomy. Cataract. Right CHIDI. Hernia repair. Trigger finger.
Plan
Chronic cough and shortness of breath , most likely related to radiographic abnormalities-pneumonia versus underlying malignancy.
Supplemental oxygen as needed.
Incentive spirometry.
Mucolytic's.
Nebulizers if needed-currently not bronchospastic..
Radiographic mxvbph-mw-tss below
Check cultures.
Sputum culture..
Infectious disease consultation
Empiric antibiotics-per infectious disease
Monitor leukocytosis.
Bird serology
Monitor hemoglobin.
Transfuse if needed.
Monitor blood sugar.
Insulin supplementation as needed.
DVT prophylaxis.
Nutrition.
Early mobilization.
Reviewed with hospitalist
Outpatient radiographic zbrfjg-io-HP chest in 4 weeks-if consolidation does not improve, consider PET scan/biopsy-reviewed with patient and 2 daughters at the bedside.
Outpatient pulmonary follow-up in 4 weeks
Diagnostic data:
Chest x-ray 09/08/2025-right upper lobe pneumonia
CT chest 09/10/2025-severe right lung consolidation may reflect complex pneumonia however underlying neoplasm cannot be excluded, no pulmonary nodules, effusions or pathologically enlarged lymph nodes
Echocardiogram 12/27/2022-EF 65%, normal diastolic function
Data Reviewed
-
EKG: Report reviewed by me
Radiology: Image personally visualized and interpreted and Report reviewed by me
CT Scan: Image personally visualized and interpreted and Report reviewed by me
Medical Tests (Nuc Med, Echo etc): Report reviewed by me
Labs: Labs reviewed by me
Old Records: Reviewed
Total Time Spent with Patient (in minutes): 55
--- NOTE | 2025-09-11 11:14 | CON.ID ---
Consultation
-
Date/Time Consultation Requested: 09/11/2025 0122
Date/Time Consultation Performed: 09/11/2025 1100
Requesting Provider: Dr. Hernández
Performing Provider: Dr. Pacheco
Reason for Consultation: Pneumonia
Chief Complaint / Past History
History of Present Illness
Paola Peralta is a 74-year-old female being evaluated at the request of Dr. Bajwa regarding pneumonia. History is obtained from chart review, along with patient interview.
The patient has a past medical history significant for HTN, GERD with Carias's esophagus, and reports approximately 3 to 4 weeks history of cough. She notes approximately 1 week into her cough her (COMMUNICATIONS INTERN physician) gave her a prescription
for a Z-Joe and a prednisone taper, although she admits she may have not been compliant with the medications. She notes at this time that the cough was mild, and was nonproductive. No history of hemoptysis. She denies any fevers or chills. She
returned delete that
She presented to the emergency room on 09/08 at the request of her daughter for further evaluation and workup. A CXR revealed a right left upper lobe pneumonia/infiltrate and she was discharged on a course of cefdinir and doxycycline.
She presents back to the emergency room on 09/10 secondary to ongoing cough, which had failed to improve. Additionally, the daughter felt that she had dyspnea on exertion, although the patient denied significant shortness of breath. The patient
was placed on cefepime, with continuation of doxycycline.
At present, the patient reports that the cough is 'deep', and she continues to deny any production of blood. She denies any sick contacts. There has been no travel. She lives in an apartment with her . Of note, she has 10 birds (parakeets
and finchs). She denies any pain. She does feel somewhat achy and weak.
Past History
Additional Past Medical History:
HTN
Hx DM (improved following weight loss)
GERD/Carias's esophagus
Heart murmur
Additional Past Surgical History:
Abdominal hernia repair
Gastric bypass
Right hip replacement
Allergy History:
iodine Allergy (Verified 09/10/25 19:16)
Hives
Medications Reviewed: Yes
Current Antibiotics:
Cefepime 2 gm IV q.8 hours
Doxycycline
Social History
Tobacco: Former Smoker (40 years; quit x 10 years)
Alcohol: Former
Drug: None
Personal:
Living: With Family
Employment: Retired
Family History
Family History: Not Pertinent
Review of Systems
Vital Signs
Temp Pulse Resp BP Pulse Ox
98.5 F 68 19 117/72 99
09/11/25 07:00 09/11/25 07:00 09/11/25 07:00 09/11/25 07:00 09/11/25 07:00
Physical Exam
Physical Exam
Constitutional: No Acute Distress, Comfortable and Non-toxic
Head: Normocephalic
Eyes: Pupils Equal, Pupils Round, No Conjunctival Hemorrhage and Sclera Anicteric
Oral: No Thrush and No Ulcers
Cardiovascular: Regular Rate and S1/S2; Negative S3/S4
Pulmonary: Clear; Negative Wheezes, Rales or Rhonchi
Gastrointestinal: Soft, Non Tender, Non Distended and Normal Bowel Sounds
Extremities: Negative Edema, Cyanosis or Erythema
Neurological: Awake and Alert
Psychological: Calm
Lab / Diagnostic Study Results
09/11/25 05:10
09/11/25 05:10
Abs Immat Gran (auto) 0.1 10^3/uL (0-0.05) H 09/10/25 19:14
Absolute Neuts (auto) 11.5 10^3/uL (1.4-6.5) H 09/10/25 19:14
Absolute Lymphs (auto) 1.7 10^3/uL (1.2-3.4) 09/10/25 19:14
Absolute Monos (auto) 0.9 10^3/uL (0.1-0.6) H 09/10/25 19:14
Absolute Basos (auto) 0.1 10^3/uL (0-0.2) 09/10/25 19:14
Immature Gran % 0.8 % (0-0.5) H 09/10/25 19:14
Neutrophils % 79.8 % (42.2-75.2) H 09/10/25 19:14
Lymphocytes % 11.7 % (20.5-51.1) L 09/10/25 19:14
Monocytes % 6.0 % (1.7-9.3) 09/10/25 19:14
Eosinophils % 1.1 % (0-6) 09/10/25 19:14
Basophils % 0.6 % (0-2) 09/10/25 19:14
Lactic Acid 0.7 mmol/L (0.7-2.0) 09/11/25 02:44
Microbiology Results
Micro:
09/11/25 10:52 Legionella Urinary Antigen - Pending
Urine Streptococcus pneumoniae Antigen (M - Pending
09/11/25 10:32 Blood Culture - Pending
Blood/Venous
09/11/25 09:40 Blood Culture - Pending
Blood/Venous
Imaging:
09/10/2025 CT chest without contrast: there is severe right lung consolidation within the subpleural aspects of the posterior lateral right upper lobe and lateral aspect of the superior segment of the right lower lobe, with consolidation crossing
the fissure. There are a few partial air bronchograms within the area of consolidation superiorly and some areas of probable bronchial cutoff. There is a small cystic/cavitary component within the consolidation anterior superiorly. There is
extensive ground glass density surrounding the inferior aspect of the consolidation in the superior segment of the right lower lobe. No associated bony erosive changes of the adjacent ribs. Please see full dictation for additional detail. Film
personally viewed.
Assessment / Plan
Right upper lobe pneumonia
Ongoing cough
Leukocytosis; improved
HTN
Hx DM (improved following weight loss)
GERD/Carias's esophagus
Heart murmur
Recommendations:
Continue with cefepime, but decrease to 1 gm IV q.6 hours.
Continue with doxycycline.
Legionella and streptococcal urinary antigens are pending.
Check mycoplasma serology.
Given history of bird exposure, check serology for chlamydia psittaci, and chlamydia pneumoniae.
Patient will need follow-up of CT findings, especially given prior history of tobacco use; await further input from Pulmonary
[2025-09-11] MEDS: MAXIPIME 1000 MG IV ×2 (12:12→17:51)
--- NOTE | 2025-09-11 15:06 | PTOTSP ---
The patient is independent with ambulation and elevations, SpO2 remained stable with activity on room air. No PT needs identified at this time, will sign off.
--- NOTE | 2025-09-11 16:02 | W.PN.HOSP.TC ---
Addendum entered and electronically signed by Tatiana Gonzalez MD 09/11/25 16:13:
Correction to subjective:
Patient feeling a bit better than on admission, still has cough, still has pain with coughing, not as short of breath. Daughter is at bedside. Discussed plan of care with pulm.
Original Note:
Today's Communication/Plan
-
Appreciate ID and pulm recommendations, continue antibiotics, await serologies
Assessment / Plan
Assessment / Plan
Severe complex RUL PNA
- Failed outpatient tx Medrol dose pack & Azitrhomycin then Doxy + Cefdinir)
- underlying neoplasm cannot be excluded. Flu negative. Blood cultures pending. Legionella/strep negative
- No hypoxia
Supportive care for cough
- Empiric IV cefepime and PO Doxy
- Pulm consulted, rec tx as above and repeat CT chest in 4 weeks
- ID consulted, rec tx as above and testing for bird serologies given her history
HX Cognitive impairment
- mild dementia vs. MCI suspect Alzheimer
Mild diffuse atrophy prior Brain MRI
FHX Dementia
- c/w Donepezil
Daughter is discussing with CM possible placement
Benign Hypertension
Stable.
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
HX Polyneuropathy
- Stable at present.
- Continue current med regimen including gabapentin for pain control.
GERD
HX Gastric Bypass
DVT Px: LMWH
Full code
Anticipated Discharge: 24 - 48 hours
Subjective/Interval History
-
Date of Service: September 11, 2025
Patient feels well, denies any pain in her left side, notes some dysuria. Daughter at bedside
Objective Data
-
Labs:
Laboratory Results
09/11/25
05:10
WBC 9.8
Hgb 8.7 L
Hct 27.3 L
Plt Count 292
Sodium 139
Potassium 3.6
Chloride 109 H
Carbon Dioxide 24
BUN 16
Creatinine 0.6
Glucose 89
Calcium 8.7
Vital Signs:
Vital Signs
Temp Pulse Resp BP Pulse Ox
98.4 F 75 18 109/68 99
09/11/25 15:00 09/11/25 15:00 09/11/25 15:00 09/11/25 15:00 09/11/25 15:00
Review of Systems
-
All other systems: Reviewed and negative
Physical Exam
-
General: No Apparent Distress
HEENT: Moist Mucous Membranes, Anicteric and PERRLA
Respiratory: Clear to Auscultation; Negative Wheezes, Rales or Rhonchi
Cardiac: Regular Rhythm and S1/S2; Negative Murmur, Rub or Gallop
GI: Soft, Nontender, Nondistended and Normal Bowel Sounds
Musculoskeletal: No Edema
Skin: Warm and Dry; Negative Rash, Ulcers or Lesions
Neuro: Awake and AO x 3
Hematologic / Lymphatic: No Lymphadenopathy
Psych: Calm
Data Reviewed
-
CT Scan: Report Reviewed by me (1. Severe right lung consolidation as described. Findings may reflect severe complex pneumonia, although underlying neoplasm cannot be excluded. ), Discussed with Physician and Discussed with Patient
Labs: Labs Reviewed by me, Discussed with Physician and Discussed with Patient
[2025-09-11] MEDS: LOVENOX 40 MG SC (17:43)
[2025-09-12] MEDS: STERILE WATER FOR INJECTION 10 ML IV ×5 (00:01→23:31)
[2025-09-12] MEDS: MAXIPIME 1000 MG IV ×5 (00:01→23:31)
[2025-09-12 05:51] VITALS: BMI 23.3
[2025-09-12 06:08] LABS: Hematocrit 30.5 % (37.0-47.0); Hemoglobin 9.5 g/dL (12.0-16.0); Mean Corp Hgb Conc. 31.1 g/dL (33.0-37.0); Mean Corpuscular Volume 83.3 fL (81.0-99.0); Nucleated Red Blood Cells % 0 %; Platelet Count 287 10^3/uL (130-400); Red Cell Dist. Width 13.2 % (11.5-14.5)
[2025-09-12 06:23] LABS: Blood Urea Nitrogen 15 mg/dl (7-17); Calcium 8.6 mg/dl (8.4-10.2); Carbon Dioxide 30 mmol/L (22-30); Chloride 108 mmol/L (98-107); Estimated Creatinine Clearance 52 ml/min; Glucose 85 mg/dl (70-99); Potassium 3.9 mmol/L (3.5-5.1); Sodium 141 mmol/L (135-145); eGFR > 60.00
[2025-09-12 07:55] VITALS: BP 116/70
--- NOTE | 2025-09-12 08:46 | W.PN.HOSP.TC ---
Today's Communication/Plan
-
Antibiotics
Supportive care
Follow culture
Assessment / Plan
Assessment / Plan
Severe complex RUL PNA
- Failed outpatient tx Medrol dose pack & Azitrhomycin then Doxy + Cefdinir)
- underlying neoplasm cannot be excluded. Flu negative. Blood cultures pending. Legionella/strep negative
- No hypoxia
Supportive care for cough, add Robitussin/guaifenesin. Add NSAIDs prn
- Empiric IV cefepime and PO Doxy
- Pulm consulted, rec tx as above and repeat CT chest in 4 weeks
- ID consulted, rec tx as above and testing for bird serologies given her history
HX Cognitive impairment
- mild dementia vs. MCI suspect Alzheimer
Mild diffuse atrophy prior Brain MRI
FHX Dementia
- c/w Donepezil
Daughter is discussing with CM possible placement
Benign Hypertension
Stable.
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
HX Polyneuropathy
- Stable at present.
- Continue current med regimen including gabapentin for pain control.
GERD
HX Gastric Bypass
DVT Px: LMWH
Full code
Anticipated Discharge: 24 - 48 hours
Subjective/Interval History
-
Date of Service: September 12, 2025
Patient states she is feeling unwell, pain when she coughs. No fevers, chills, no phlegm. Denies shortness of breath.
Objective Data
-
Labs:
Laboratory Results
09/12/25
05:26
WBC 8.5
Hgb 9.5 L
Hct 30.5 L
Plt Count 287
Sodium 141
Potassium 3.9
Chloride 108 H
Carbon Dioxide 30
BUN 15
Creatinine 0.6
Glucose 85
Calcium 8.6
Vital Signs:
Vital Signs
Temp Pulse Resp BP Pulse Ox
98.8 F 77 14 116/70 97
09/12/25 07:55 09/12/25 07:55 09/12/25 07:55 09/12/25 07:55 09/12/25 07:55
I&O
09/11/25 09/12/25 09/13/25
06:59 06:59 06:59
Intake Total 1919
Balance 1919
Review of Systems
-
All other systems: Reviewed and negative
Physical Exam
-
General: No Apparent Distress
HEENT: Moist Mucous Membranes, Anicteric and PERRLA
Respiratory: Clear to Auscultation; Negative Wheezes, Rales or Rhonchi
Cardiac: Regular Rhythm, S1/S2 and Murmur; Negative Rub or Gallop
GI: Soft, Nontender, Nondistended and Normal Bowel Sounds
Musculoskeletal: No Edema
Skin: Warm and Dry; Negative Rash, Ulcers or Lesions
Neuro: Awake and AO x 3
Hematologic / Lymphatic: No Lymphadenopathy
Psych: Calm
Data Reviewed
-
CT Scan: Report Reviewed by me (1. Severe right lung consolidation as described. Findings may reflect severe complex pneumonia, although underlying neoplasm cannot be excluded. ), Discussed with Physician and Discussed with Patient
Labs: Labs Reviewed by me, Discussed with Physician and Discussed with Patient
[2025-09-12] MEDS: ORETIC 12.5 MG PO (09:00)
[2025-09-12] MEDS: PROZAC 40 MG PO (09:00)
[2025-09-12] MEDS: VIBRAMYCIN 100 MG PO ×2 (09:00→20:00)
[2025-09-12] MEDS: ASPIR LOW (ENTERIC COATED) 81 MG PO (09:00)
[2025-09-12] MEDS: PROTONIX 40 MG PO (09:00)
[2025-09-12] MEDS: ARICEPT 10 MG PO (09:00)
[2025-09-12] MEDS: MUCINEX 600 MG PO ×2 (09:00→20:00)
[2025-09-12] MEDS: ZESTRIL 10 MG PO (09:00)
--- NOTE | 2025-09-12 09:56 | W.PN.PUL.V3 ---
Today's Communication / Plan
-
Increase activity
Antibiotics
Outpatient CT chest 4 weeks with pulmonary follow-up
Assessment
-
74-year-old former smoking female with dementia, hypertension, neuropathy, and GERD presented with cough for the past 3 weeks unresponsive to steroids and antibiotics found to have a pneumonia and pulmonary consulted for pneumonia 09/11/2025.
Wilkyvhlm-lgcdmfrnp-btstbxvn-cannot rule out underlying lung mass
Leukocytosis
Getdgd-lcpmisuqft-kdfpzmgetl 8.7
Mild hyperglycemia
Conditions present prior to admission:
Dementia.
Hypertension.
Former nnqeqi-76-kpfl-year quit 20 years ago.
Depression.
Hyperlipidemia.
Peripheral neuropathy.
Osteoarthritis.
Obesity/gastric bypass.
GERD/Carias's esophagus.
Lumbar laminectomy. Cataract. Right CHIDI. Hernia repair. Trigger finger.
Plan
Chronic cough and shortness of breath , most likely related to radiographic abnormalities-pneumonia versus underlying malignancy.
Supplemental oxygen as needed-97% on room air
Incentive spirometry.
Mucolytic's.
Nebulizers if needed-currently not bronchospastic..
Radiographic gewvjt-sk-ddr below
Cultures reviewed
Urine Legionella and streptococcal antigen negative
Blood cultures negative
Influenza negative
Unable to produce sputum
Infectious disease consultation noted-correspondence reviewed
Empiric antibiotics-per infectious disease
Monitor leukocytosis.
Bird serology pending
Monitor hemoglobin.
Transfuse if needed.
Monitor blood sugar.
Insulin supplementation as needed.
DVT prophylaxis.
Nutrition.
Early mobilization.
Reviewed with hospitalist
Outpatient radiographic ojqfrd-ga-TE chest in 4 weeks-if consolidation does not improve, consider PET scan/biopsy-
Dr. Garcia reviewed with patient and 2 daughters at the bedside 09/11/2025
Outpatient pulmonary follow-up in 4 weeks
Diagnostic data:
Chest x-ray 09/08/2025-right upper lobe pneumonia
CT chest 09/10/2025-severe right lung consolidation may reflect complex pneumonia however underlying neoplasm cannot be excluded, no pulmonary nodules, effusions or pathologically enlarged lymph nodes
Echocardiogram 12/27/2022-EF 65%, normal diastolic function
Subjective Data
-
Date of Service:
Date of Service: September 12, 2025
Chief Complaint: Pulmonary Follow Up and Dyspnea Follow Up
Subjective:
Feels about the same, has vague inspiratory dull chest pain, no pleurisy, no chest congestion or productive sputum
Review of Systems
General: Other (Per HPI)
Objective Data
Data Reviewed
Vital Signs / I&O:
Vital Signs
Temp Pulse Resp BP Pulse Ox
98.8 F 77 14 116/70 97
09/12/25 07:55 09/12/25 07:55 09/12/25 07:55 09/12/25 07:55 09/12/25 07:55
Intake and Output
09/11/25 09/12/25 09/13/25
06:59 06:59 06:59
Intake Total 1919
Balance 1919
SaO2: 97
Physical Exam
General: Respiratory Distress (n) and Comfortable
HEENT: Normocephalic, Anicteric and Moist Mucous Membranes
Cardiovascular: Regular Rhythm
Respiratory: Wheeze (n), Crackles (n), Rhonchi (n), Non-Labored Respirations, Accessory Resp Muscle Use (n) and Stridor
GI: Soft, Non Distended and Non Tender
Neurology: Awake, Alert and No Motor Deficits
Skin: Warm, Good Color, Cyanosis (n), Jaundice (n) and Rash (n)
Labs/Micro/Reports
Lab Data
09/12/25 05:26
09/12/25 05:26
Microbiology
09/11/25 10:52 Urine Legionella Urinary Antigen - Final
Negative for Legionella pneumophila Serogroup 1 antigen.
A negative result does not rule out the possiblity of
Legionella infection due to other serogroups or species of
Legionella. Clinical correlation is recommended.
09/11/25 10:52 Urine Streptococcus pneumoniae Antigen (M - Final
Negative for Streptococcus pneumoniae antigen.
A negative result does not exclude infection with
Streptococcus pneumoniae. Clinical correlation is
recommended.
[2025-09-12] MEDS: ROBITUSSIN DM 10 ML PO (10:59)
[2025-09-12] MEDS: TYLENOL 650 MG PO (10:59)
--- NOTE | 2025-09-12 12:07 | CM ---
Addendum entered by Olga Finnegan 09/13/25 13:49:
Pt is agreeable to VN at discharge.
Original Note:
CM met with Paola at bedside today. Paola wants to return home at discharge. She was evaluated by PT, no need for O2, and patient was independent with ambulation and stairs and PT reports no needs identified. Pt does not qualify for SNF.
Call placed to Paola's daughter who advised that she is working to get Medicaid for her mother and is interested in a memory care unit.
CM made Paola's daughter aware that a memory care unit would be private pay, and discharge is anticipated in the next 24-48 hours.
Per Paola, her PCP office advised that they would help with placement and Paola is going to call them today.
Plan: CM will continue to follow for all discharge planning needs pending pt's consent to placement vs. discharge to home with services.
--- NOTE | 2025-09-12 12:39 | W.PN.ID1 ---
Date of Service
Date of Service: September 12, 2025
Today's Communication
Continue antibiotics.
Assessment / Plan
Right upper lobe pneumonia
Ongoing cough
Leukocytosis; improved
HTN
Hx DM (improved following weight loss)
GERD/Carias's esophagus
Heart murmur
Recommendations:
Continue cefepime.
Continue doxycycline.
- May be able to transition back to oral cefdinir/doxycycline in the next 24 to 48 hours.
Legionella and streptococcal urinary antigens negative.
Mycoplasma serology pending
Chlamydia psittaci, and chlamydia pneumoniae serology pending.
Patient will need follow-up of CT findings, especially given prior history of tobacco use; await further input from Pulmonary
����������������������������������������������������������
Chief Complaint
-: Pneumonia
Subjective / Review of Systems
Review of Systems: No Fever, No Chills, Cough and No Sputum Production
Vital Signs / Physical Exam
Vital Signs
Vital Signs
Temp Pulse Resp BP Pulse Ox
98.8 F 77 14 116/70 97
09/12/25 07:55 09/12/25 07:55 09/12/25 07:55 09/12/25 07:55 09/12/25 09:56
Physical Exam
Constitutional: No Acute Distress, Comfortable and Non-toxic
Eyes: Sclera Anicteric
Cardiovascular: S1/S2; Negative S3/S4
Pulmonary: Non Labored; Negative Wheezes, Rales or Rhonchi
Gastrointestinal: Soft, Non Tender and Non Distended
Neurological: Awake and Alert
Psychological: Calm
Objective Data
Lab Data
Lab Results
09/12/25 05:26
09/12/25 05:26
Estimated Creat Clear 52 ml/min 09/12/25 05:26
Lactic Acid 0.7 mmol/L (0.7-2.0) 09/11/25 02:44
Total Bilirubin 0.2 mg/dl (0.2-1.3) 09/10/25 19:14
AST 23 U/L (14-36) 09/10/25 19:14
ALT 22 U/L (0-35) 09/10/25 19:14
Alkaline Phosphatase 75 U/L (38-126) 09/10/25 19:14
Most recent labs reviewed.
Micro Results:
09/11/25 10:32 Blood Culture - Preliminary
Blood/Venous No Growth in 24 hours- Final report to follow
09/11/25 09:40 Blood Culture - Preliminary
Blood/Venous No Growth in 24 hours- Final report to follow
09/11/25 10:52 Legionella Urinary Antigen - Final
Urine Negative for Legionella pneumophila Serogroup 1 antigen.
A negative result does not rule out the possiblity of
Legionella infection due to other serogroups or species of
Legionella. Clinical correlation is recommended.
Streptococcus pneumoniae Antigen (M - Final
Negative for Streptococcus pneumoniae antigen.
A negative result does not exclude infection with
Streptococcus pneumoniae. Clinical correlation is
recommended.
Imaging:
09/10/2025 CT chest without contrast: there is severe right lung consolidation within the subpleural aspects of the posterior lateral right upper lobe and lateral aspect of the superior segment of the right lower lobe, with consolidation crossing
the fissure. There are a few partial air bronchograms within the area of consolidation superiorly and some areas of probable bronchial cutoff. There is a small cystic/cavitary component within the consolidation anterior superiorly. There is
extensive ground glass density surrounding the inferior aspect of the consolidation in the superior segment of the right lower lobe. No associated bony erosive changes of the adjacent ribs. Please see full dictation for additional detail. Film
personally viewed.
[2025-09-12] MEDS: LOVENOX 40 MG SC (18:33)
[2025-09-12] MEDS: PRAVACHOL 40 MG PO (21:19)
[2025-09-12] MEDS: NEURONTIN 900 MG PO (21:19)
[2025-09-12 23:45] VITALS: BP 114/59
[2025-09-13] MEDS: STERILE WATER FOR INJECTION 10 ML IV (05:19)
[2025-09-13] MEDS: MAXIPIME 1000 MG IV (05:20)
[2025-09-13 05:35] VITALS: BMI 23.3
[2025-09-13 05:38] LABS: Hematocrit 30.9 % (37.0-47.0); Hemoglobin 9.7 g/dL (12.0-16.0); Mean Corp Hgb Conc. 31.4 g/dL (33.0-37.0); Mean Corpuscular Volume 86.6 fL (81.0-99.0); Nucleated Red Blood Cells % 0 %; Platelet Count 274 10^3/uL (130-400); Red Cell Dist. Width 13.3 % (11.5-14.5)
[2025-09-13 06:08] LABS: Blood Urea Nitrogen 17 mg/dl (7-17); Calcium 9.0 mg/dl (8.4-10.2); Carbon Dioxide 29 mmol/L (22-30); Chloride 106 mmol/L (98-107); Estimated Creatinine Clearance 45 ml/min; Glucose 94 mg/dl (70-99); Potassium 4.0 mmol/L (3.5-5.1); Sodium 139 mmol/L (135-145); eGFR > 60.00
[2025-09-13 07:22] VITALS: BP 112/71
[2025-09-13] MEDS: PROTONIX 40 MG PO (07:45)
[2025-09-13] MEDS: PROZAC 40 MG PO (07:45)
[2025-09-13] MEDS: MUCINEX 600 MG PO (07:45)
[2025-09-13] MEDS: ASPIR LOW (ENTERIC COATED) 81 MG PO (07:45)
[2025-09-13] MEDS: VIBRAMYCIN 100 MG PO (07:45)
[2025-09-13] MEDS: ZESTRIL 10 MG PO (07:45)
[2025-09-13] MEDS: ARICEPT 10 MG PO (07:45)
[2025-09-13] MEDS: ORETIC 12.5 MG PO (07:45)
--- NOTE | 2025-09-13 09:27 | W.PN.PUL.V3 ---
Today's Communication / Plan
-
.
Change to oral antibiotics.
Outpatient CT chest in 4 weeks with pulmonary follow-up
Assessment
-
74-year-old former smoking female with dementia, hypertension, neuropathy, and GERD presented with cough for the past 3 weeks unresponsive to steroids and antibiotics found to have a pneumonia and pulmonary consulted for pneumonia 09/11/2025.
Pkgcasaca-dcronmdra-hawsrkgd-cannot rule out underlying lung mass
Leukocytosis
Obeubc-flkjfqkpmg-fzysqmvfoo 8.7
Mild hyperglycemia
Conditions present prior to admission:
Dementia.
Hypertension.
Former gaepnb-95-cjfj-year quit 20 years ago.
Depression.
Hyperlipidemia.
Peripheral neuropathy.
Osteoarthritis.
Obesity/gastric bypass.
GERD/Carias's esophagus.
Lumbar laminectomy. Cataract. Right CHIDI. Hernia repair. Trigger finger.
Plan
Chronic cough and shortness of breath , most likely related to radiographic abnormalities-pneumonia versus underlying malignancy.
Supplemental oxygen as needed-97% on room air
Incentive spirometry.
Mucolytic's.
Nebulizers if needed-currently not bronchospastic..
Radiographic tuahyo-gp-pdp below
Cultures reviewed
Urine Legionella and streptococcal antigen negative
Blood cultures negative
Influenza negative
Unable to produce sputum
Infectious disease consultation noted-correspondence reviewed
Empiric antibiotics-per infectious disease
Monitor leukocytosis.
Bird serology-Chlamydia psittacosis and Chlamydia pneumoniae, mycoplasma titers, pending
Monitor hemoglobin.
Transfuse if needed.
Monitor blood sugar.
Insulin supplementation as needed.
DVT prophylaxis.
Nutrition.
Early mobilization.
Reviewed with hospitalist
Outpatient radiographic xiocph-af-EO chest in 4 weeks-if consolidation does not improve, consider PET scan/biopsy-
Dr. Garcia reviewed with patient and 2 daughters at the bedside 09/11/2025
Outpatient pulmonary follow-up in 4 weeks
Diagnostic data:
Chest x-ray 09/08/2025-right upper lobe pneumonia
CT chest 09/10/2025-severe right lung consolidation may reflect complex pneumonia however underlying neoplasm cannot be excluded, no pulmonary nodules, effusions or pathologically enlarged lymph nodes
Echocardiogram 12/27/2022-EF 65%, normal diastolic function
Subjective Data
-
Date of Service:
Date of Service: September 13, 2025
Chief Complaint: Pulmonary Follow Up and Dyspnea Follow Up
Subjective:
feels better, less short of breath, no productive cough
Review of Systems
General: Other ( per HPI)
Objective Data
Data Reviewed
Vital Signs / I&O:
Vital Signs
Temp Pulse Resp BP Pulse Ox
98.0 F 65 17 112/71 99
09/13/25 07:22 09/13/25 07:22 09/13/25 07:22 09/13/25 07:22 09/13/25 07:22
Intake and Output
09/12/25 09/13/25 09/14/25
06:59 06:59 06:59
Intake Total 1919 1440 / 1440
Balance 1919 1440 / 1440
SaO2: 99
Physical Exam
General: Respiratory Distress (n) and Comfortable
HEENT: Normocephalic, Anicteric and Moist Mucous Membranes
Cardiovascular: Regular Rhythm
Respiratory: Wheeze (n), Crackles (n), Rhonchi (n), Non-Labored Respirations, Accessory Resp Muscle Use (n) and Stridor
GI: Soft, Non Distended and Non Tender
Neurology: Awake, Alert and No Motor Deficits
Skin: Warm, Good Color, Cyanosis (n), Jaundice (n) and Rash (n)
Labs/Micro/Reports
Lab Data
09/13/25 05:12
09/13/25 05:12
Microbiology
09/11/25 10:32 Blood/Venous Blood Culture - Preliminary
No Growth in 24 hours- Final report to follow
09/11/25 09:40 Blood/Venous Blood Culture - Preliminary
No Growth in 24 hours- Final report to follow
09/11/25 10:52 Urine Legionella Urinary Antigen - Final
Negative for Legionella pneumophila Serogroup 1 antigen.
A negative result does not rule out the possiblity of
Legionella infection due to other serogroups or species of
Legionella. Clinical correlation is recommended.
09/11/25 10:52 Urine Streptococcus pneumoniae Antigen (M - Final
Negative for Streptococcus pneumoniae antigen.
A negative result does not exclude infection with
Streptococcus pneumoniae. Clinical correlation is
recommended.
--- NOTE | 2025-09-13 11:39 | W.PN.ID1 ---
Date of Service
Date of Service: September 13, 2025
Today's Communication
Transition to oral antibiotics.
Assessment / Plan
Right upper lobe pneumonia
Ongoing cough
Leukocytosis; improved
HTN
Hx DM (improved following weight loss)
GERD/Carias's esophagus
Heart murmur
Recommendations:
Transition to cefepime to cefdinir
Continue doxycycline.
Continue antibiotics for an additional 7 days.
Legionella and streptococcal urinary antigens negative.
Mycoplasma serology pending
Chlamydia psittaci, and chlamydia pneumoniae serology pending.
Patient will need follow-up of CT findings, especially given prior history of tobacco use; await further input from Pulmonary
����������������������������������������������������������
Chief Complaint
-: Pneumonia
Subjective / Review of Systems
Review of Systems: No Fever, No Chills, No Cough and No Sputum Production
Vital Signs / Physical Exam
Vital Signs
Vital Signs
Temp Pulse Resp BP Pulse Ox
98.0 F 65 17 112/71 99
09/13/25 07:22 09/13/25 07:22 09/13/25 07:22 09/13/25 07:22 09/13/25 09:27
Physical Exam
Constitutional: No Acute Distress, Comfortable and Non-toxic
Eyes: Sclera Anicteric
Cardiovascular: S1/S2; Negative S3/S4
Pulmonary: Non Labored; Negative Wheezes, Rales or Rhonchi
Gastrointestinal: Soft, Non Tender and Non Distended
Neurological: Awake and Alert
Psychological: Calm
Objective Data
Lab Data
Lab Results
09/13/25 05:12
09/13/25 05:12
Estimated Creat Clear 45 ml/min 09/13/25 05:12
Lactic Acid 0.7 mmol/L (0.7-2.0) 09/11/25 02:44
Total Bilirubin 0.2 mg/dl (0.2-1.3) 09/10/25 19:14
AST 23 U/L (14-36) 09/10/25 19:14
ALT 22 U/L (0-35) 09/10/25 19:14
Alkaline Phosphatase 75 U/L (38-126) 09/10/25 19:14
Most recent labs reviewed.
Micro Results:
09/11/25 10:32 Blood Culture - Preliminary
Blood/Venous No Growth in 48 hours- Final report to follow
09/11/25 09:40 Blood Culture - Preliminary
Blood/Venous No Growth in 48 hours- Final report to follow
09/11/25 10:52 Legionella Urinary Antigen - Final
Urine Negative for Legionella pneumophila Serogroup 1 antigen.
A negative result does not rule out the possiblity of
Legionella infection due to other serogroups or species of
Legionella. Clinical correlation is recommended.
Streptococcus pneumoniae Antigen (M - Final
Negative for Streptococcus pneumoniae antigen.
A negative result does not exclude infection with
Streptococcus pneumoniae. Clinical correlation is
recommended.
Imaging:
09/10/2025 CT chest without contrast: there is severe right lung consolidation within the subpleural aspects of the posterior lateral right upper lobe and lateral aspect of the superior segment of the right lower lobe, with consolidation crossing
the fissure. There are a few partial air bronchograms within the area of consolidation superiorly and some areas of probable bronchial cutoff. There is a small cystic/cavitary component within the consolidation anterior superiorly. There is
extensive ground glass density surrounding the inferior aspect of the consolidation in the superior segment of the right lower lobe. No associated bony erosive changes of the adjacent ribs. Please see full dictation for additional detail. Film
personally viewed.
Care Review
Plan reviewed with: Physician (Hospitalist)
--- NOTE | 2025-09-13 12:22 | W.DCSUMMARY ---
Discharge Summary
Discharge Data
Date of Admission: 09/10/25
Date of Discharge: 09/13/25
Total time spent discharging patient (in min): 31
-
Pending Results: No
Hospital Course
Attending physician on day of discharge:
Tatiana Gonzalez MD
Admission diagnosis:
Pneumonia
Discharge diagnosis:
Severe complex right upper lobe pneumonia
Consultations:
ID
Pulmonology
Diagnostic findings:
Chest x-ray 09/08/2025-right upper lobe pneumonia
CT chest 09/10/2025-severe right lung consolidation may reflect complex pneumonia however underlying neoplasm cannot be excluded, no pulmonary nodules, effusions or pathologically enlarged lymph nodes
Hospital course:
74F w/ cognitive impairment, HTN, polyneuropathy, GERD presenting with cough, persistent despite outpatient treatment with Medrol Dosepak and oral antibiotics. CT scan showed severe complex pneumonia with right upper lobe consolidation. She was
not hypoxic. She was treated with empiric IV cefepime and oral Doxy, this was adjusted to oral cefdinir/oral Doxy as patient showed improvement. She was seen by pulmonology who recommended antibiotics, supportive care and repeat CT chest in 4
weeks to rule out underlying neoplasm. She was seen by PT and was independent with ambulation and safe for home.
Physical exam on discharge:
Gen: NAD
HEENT: PERRLA, EOMI, MMM, neck supple
Cards: RRR, no M/G/R
Resp: Lungs CTAB, no W/R/R
GI: soft, NT/ND/NABS
MSK: No edema
Skin: warm and dry, no rash, ulcer or lesions
Heme: No LAD
Psych: Calm
Neuro: AAOx3
Discharge disposition:
Home
Discharge Plan
-
Patient Disposition: Home (Routine Discharge)
Discharge Diagnosis/Procedures: Pneumonia
Diet: Regular
Activity: As tolerated
Others Tests: Outpatient CT chest 4 weeks with pulmonary follow-up
Instructions: Pneumonia
Referrals:
Barb Bradshaw PA-C [Family Provider, Family Practice]
Jagjit Garcia MD [Active, Pulmonary Medicine] - in three to four weeks
Referral Note: CT chest in 4 weeks
Adriana Bertrand MD [Active, Infectious Diseases]
Prescriptions:
New
doxycycline hyclate 100 mg Capsule
100 mg PO BID 7 Days Qty: 14 0RF
dextromethorphan-guaifenesin 10-100 mg/5 mL Syrup
10 ml PO Q4HPRN PRN (Reason: cough) Qty: 0 0RF
cefdinir 300 mg Capsule
300 mg PO Q12 7 Days Qty: 14 0RF
Continued
multivitamin Tablet
1 tab PO DAILY
fluoxetine 40 mg Capsule
40 mg PO DAILY
pravastatin 40 mg Tablet
40 mg PO HS
donepezil 10 mg Tablet
10 mg PO DAILY
pantoprazole [Protonix] 40 mg Tablet,Delayed Release (Dr/Ec)
40 mg PO DAILY
vitamin B complex Tablet
1 tab PO DAILY
aspirin 81 mg Tablet
81 mg PO DAILY
lisinopril-hydrochlorothiazide 10-12.5 mg Tablet
1 tab PO DAILY
gabapentin 300 mg Tablet
900 mg PO HS
Discontinued
cefdinir 300 mg capsule
300 mg PO BID 10 Days Qty: 20 0RF
doxycycline hyclate 100 mg capsule
100 mg PO BID 10 Days Qty: 20 0RF
Discharge Orders:
Discharge Patient (As Directed); Ordered 09/13/25
Ordered By: Tatiana Gonzalez
Discharge Date and Time
Discharge Date/Time: 09/13/25 15:06
Print Language: EQUATORIAL GUINEAN
--- NOTE | 2025-09-13 12:23 | CM ---
CM met with Paola at bedside today; she is cleared for discharge. Home care and SNF discussed. Paola wants to return home at discharge and declines services. She was evaluated by PT, no need for O2, and patient was independent with ambulation
and stairs and PT reports no needs identified.
CM spoke with patient and her daughter. Daughter advised she will provide transport home.
IMM reviewed with patient, signed copy placed in chart, pt provided with a copy as well.
[2025-09-14 03:12] LABS: Mycoplasma pneumoniae-IgM 0.08 U/L (<=0.76)
[2025-09-14 05:28] LABS: Chlamydia Pneumoniae, IgG <1:64 (<1:64); Chlamydia Psittaci, IgG <1:64 (<1:64); Chlamydia Trachomatis, IgG <1:64 (<1:64)
== END 2025-09-13 15:06 | disposition hospice, home (50) | DRG 194 ==
LOC: 3 WEST ACU 23:00
PROVIDERS: Nurse Practitioner; ADMITTING PHYSICIAN Internal Medicine; ATTENDING PHYSICIAN Internal Medicine; CONSULT PHYSICIAN Internal Medicine Critical Care Medicine; EMERGENCY PHYSICIAN Emergency Medicine; FAMILY PHYSICIAN Physician Assistant Medical; OTHER PHYSICIAN Internal Medicine Infectious Disease
DX: J18.9 Pneumonia, unspecified organism (principal); F03.93 Unspecified dementia, unspecified severity, with mood disturbance; I10 Essential (primary) hypertension; K21.9 Gastro-esophageal reflux disease without esophagitis; G62.9 Polyneuropathy, unspecified; F32.A Depression, unspecified; Z98.84 Bariatric surgery status; Z87.891 Personal history of nicotine dependence; Z79.82 Long term (current) use of aspirin; Z79.899 Other long term (current) drug therapy; D64.9 Anemia, unspecified; Z96.641 Presence of right artificial hip joint
CPT/HCPCS: 71046; 71250; 80048; 80053; 83605; 85025; 85027; 86631; 86738; 87040; 87449; 87502; 87811; 87899; 93005; 96361; 96365; 96366; 96375; 97161; 99284; 99285

== ENCOUNTER 2025-09-30 06:22 | Emergency (ER) | payer MEDICARE, SELFPAY ==
[2025-09-30] VITALS (11 sets, daily range): BP systolic 125–152; BP diastolic 71–103; BMI 25.3
--- NOTE | 2025-09-30 07:48 | ED.GENMED ---
History of Present Illness
<Robert Travis PA-C - Last Filed: 10/01/25 16:22>
General
Chief Complaint: Abdominal Pain
Source: patient and records
Time Seen by Provider: 09/30/25 07:38
History of Present Illness
History of Present Illness:
74-year-old female with recent past medical history of a complex right upper lobe pneumonia, hypertension, questionable diabetes and Carias's esophagus presenting to the emergency department for generalized abdominal pain that has been ongoing for
the last 2 weeks noting the pain started shortly after she had completed her antibiotics for pneumonia. There are no accompanying symptoms including nausea vomiting or diarrhea, chest pain or shortness of breath, urinary symptoms, lack of p.o.
intake although the patient did note that p.o. intake seem to exacerbate her symptoms which would last for about 1 to 2 hours after eating but pain was not located within the right upper quadrant or radiating into the back or flank area. She has
not attempted any medications for relief but does note she takes pantoprazole daily due to the history of Carias's esophagus. She does follow with a GI physician at an outside institution and notes she has had endoscopy and colonoscopy in the past
Past History
<Robert Travis PA-C - Last Filed: 10/01/25 16:22>
Past History
ED Past Medical History: GERD, HTN and Other (Arthritis)
ED Past Surgical History: Orthopedic and Other
Social History
Tobacco: Non-smoker
Alcohol: None
Drug: None
Personal:
Living: with family
Review of Systems
<Robert Travis PA-C - Last Filed: 10/01/25 16:22>
Review of Systems
All Other Systems: ROS reviewed and negative except as documented in HPI and ROS
Phy Exam
<Robert Travis PA-C - Last Filed: 10/01/25 16:22>
Physical Exam
Physical Exam:
GENERAL: Alert , in no apparent distress
EYE: clear conjunctiva b/l
HEAD: NCAT
ENT: o/p clr, mmm.
CARDIAC: Regular rate and rhythm .
LUNGS: Clear breath sounds bilaterally, no acute respiratory distress, no wheezes/rales/rhonchi
ABDOMEN: Soft, without focal tenderness, no r/g, no cvat, soft but tender periumbilical hernia, no overlying skin changes
NEUROLOGICAL: Alert and oriented
SKIN: Warm and dry, skin intact.
MUSCULOSKELETAL: well perfused.
PSYCH: Normal and appropriate interaction.
Scores
<Robert Travis PA-C - Last Filed: 10/01/25 16:22>
Heart Failure Risk
Heart Failure Risk Score: Not Applicable
Heart Score for Chest Pain Patients
STEMI patient?: Not applicable
Withdrawal Assessment of Alcohol
Withdrawal Assessment Completed?: Not applicable
Course
<Robert Travis PA-C - Last Filed: 10/01/25 16:22>
Orders/Labs/Results
Orders:
Orders
09/30/25 07:45
Electrocardiogram (*1) Urgent
Reason for Study: Abdominal Pain
CT Abd/pelvis W Iv Cont Urgent
Comment:
Reason For Exam: generalized abd pain x 2 weeks, recent pneumonia
EKG- Treatment ONCE
09/30/25 07:49
Diphenhydramine [Benadryl] 50 mg IV NOW STA
Hydrocortisone Sod Succinate [Solu-Cortef] 200 mg IV NOW STA
09/30/25 08:39
Complete Blood Count/With Diff Urgent
Comprehensive Metabolic Panel Urgent
Lipase Urgent
Troponin I Urgent
Urinalysis Reflex To Culture Urgent
Date Specimen was Collected: 09/30/25
Time Specimen was Collected: 08:27
Urine Microscopic Reflex Cult Urgent
Urine Culture Urgent
CHERIE Source: U
Specimen Description:
Date Specimen was Collected: 09/30/25
Time Specimen was Collected: 08:27
09/30/25 13:49
0.9% Sodium Chloride 500 ml [Nss] 500 ml IV BOLUS
Ketorolac [Toradol] 15 mg IV NOW STA
Abnormal Lab Results
09/30/25
08:39
RBC 3.82 L 10^6/uL
(4.20-5.40)
Hgb 10.2 L g/dL
(12.0-16.0)
Hct 32.8 L %
(37.0-47.0)
MCH 26.7 L pg
(27.0-31.0)
MCHC 31.1 L g/dL
(33.0-37.0)
RDW 15.9 H %
(11.5-14.5)
BUN 27 H mg/dl
(7-17)
Glucose 103 H mg/dl
(70-99)
Leukocyte Esterase Rfl 1+ A
(Negative)
Urine RBC 7-10 A /HPF
(0-2)
Urine WBC (Reflex) 11-15 A /HPF
(0-5)
Urine Bacteria (Reflex) Moderate A
(Negative)
Urine Glucose 1+ A
(Negative)
Urine Albumin (Reflex) 2+ A
(Neg - Trace)
09/30/25 08:39
09/30/25 08:39
Vital Signs
Initial and Last Documented VS:
Initial Vital Signs
Temp Pulse Resp BP Pulse Ox
97.7 F 66 24 136/84 100
09/30/25 06:25 09/30/25 06:25 09/30/25 06:25 09/30/25 06:25 09/30/25 06:25
Last Documented Vital Signs
Temp Pulse Resp BP Pulse Ox
97.7 F 73 14 130/78 97
09/30/25 06:25 09/30/25 18:00 09/30/25 18:00 09/30/25 18:00 09/30/25 18:00
<Shun Kothari MD - Last Filed: 09/30/25 14:25>
Orders/Labs/Results
Orders:
Orders
09/30/25 07:45
Electrocardiogram (*1) Urgent
Reason for Study: Abdominal Pain
CT Abd/pelvis W Iv Cont Urgent
Comment:
Reason For Exam: generalized abd pain x 2 weeks, recent pneumonia
EKG- Treatment ONCE
09/30/25 07:49
Diphenhydramine [Benadryl] 50 mg IV NOW STA
Hydrocortisone Sod Succinate [Solu-Cortef] 200 mg IV NOW STA
09/30/25 08:39
Complete Blood Count/With Diff Urgent
Comprehensive Metabolic Panel Urgent
Lipase Urgent
Troponin I Urgent
Urinalysis Reflex To Culture Urgent
Date Specimen was Collected: 09/30/25
Time Specimen was Collected: 08:27
Urine Microscopic Reflex Cult Urgent
Urine Culture Urgent
CHERIE Source: U
Specimen Description:
Date Specimen was Collected: 09/30/25
Time Specimen was Collected: 08:27
09/30/25 13:49
0.9% Sodium Chloride 500 ml [Nss] 500 ml IV BOLUS
Ketorolac [Toradol] 15 mg IV NOW STA
Abnormal Lab Results
09/30/25
08:39
RBC 3.82 L 10^6/uL
(4.20-5.40)
Hgb 10.2 L g/dL
(12.0-16.0)
Hct 32.8 L %
(37.0-47.0)
MCH 26.7 L pg
(27.0-31.0)
MCHC 31.1 L g/dL
(33.0-37.0)
RDW 15.9 H %
(11.5-14.5)
BUN 27 H mg/dl
(7-17)
Glucose 103 H mg/dl
(70-99)
Leukocyte Esterase Rfl 1+ A
(Negative)
Urine RBC 7-10 A /HPF
(0-2)
Urine WBC (Reflex) 11-15 A /HPF
(0-5)
Urine Bacteria (Reflex) Moderate A
(Negative)
Urine Glucose 1+ A
(Negative)
Urine Albumin (Reflex) 2+ A
(Neg - Trace)
09/30/25 08:39
09/30/25 08:39
Vital Signs
Initial and Last Documented VS:
Initial Vital Signs
Temp Pulse Resp BP Pulse Ox
97.7 F 66 24 136/84 100
09/30/25 06:25 09/30/25 06:25 09/30/25 06:25 09/30/25 06:25 09/30/25 06:25
Last Documented Vital Signs
Temp Pulse Resp BP Pulse Ox
97.7 F 73 14 130/78 97
09/30/25 06:25 09/30/25 18:00 09/30/25 18:00 09/30/25 18:00 09/30/25 18:00
<Robert Travis PA-C - Last Filed: 10/01/25 16:22>
MDM/Problems Addressed
Differential Diagnosis Includes:
Umbilical hernia
Incarcerated/strangulated hernia
GERD
Gastritis
PUD
Pancreatitis
Malignancy
Cholecystitis
Colitis
Atypical ACS
MDM/Problems Addressed:
74-year-old female presenting the ER for evaluation of waxing and waning abdominal pain for the last 1 to 2 weeks shortly after completing antibiotics for a complex pneumonia that required admission. No other symptoms other than the pain. Patient
does have a palpable hernia on her exam with some tenderness over this area but she states that the pain she is feeling is a little bit different than what I am appreciating on her exam. Will obtain CT scan of the abdomen and pelvis, blood work
ordered. Patient currently declining anything for pain.
<Robert Traivs PA-C - Last Filed: 10/01/25 16:22>
*Radiology
Radiology exam reviewed: radiology read reviewed
*Pulse Oximetry
SaO2: 100
Oxygen Mode of Delivery: Room air
Patient hypoxic: no
*Critical Care Note
Total Time (30-74mins, 75-104mins- exclusive of procedures): Not Applicable
Data Reviewed
Review of Other/Old Records Reveals: Labs, Records and Radiology Studies
<Robert Travis PA-C - Last Filed: 10/01/25 16:22>
Patient Management
Discussion with other providers: [facility]ge [facility]
Escalation/DeEscalation of care consider admission/obs:
11:10 a,m: Patient CT scan reviewed which shows a small bowel�small bowel intussusception. I notified our surgical team who will come to the ER to evaluate patient for disposition planning.
Our surgical team came to evaluate the patient and based off her history of previous gastric bypass surgery they recommend patient be transferred to a bariatric center. I was able to speak to bariatric surgeon, Dr. Delgadillo, who accepts the patient
in transfer. We reviewed patient's labs, imaging and her current presentation. Given she is quite well-appearing with no signs of ischemia on exam patient does not need to be immediately rushed over to their facility for emergent surgery however
patient should present there for further evaluation by the bariatric surgical team. Patient advised to remain NPO. Once bed assigned we will be able to arrange for transfer.
ED Attending Note
<Robert Travis PA-C - Last Filed: 10/01/25 16:22>
-
Portions of this chart may have been created with voice recognition software.� Occasional wrong word or��sound alike� substitutions may have occurred due to the inherent limitations of voice recognition software.
<Shun Kothari MD - Last Filed: 09/30/25 14:25>
ED Attending Note
Patient seen and examined by attending physician: Yes
ED Attending Note:
Patient presents to ED secondary to intermittent abdominal pain over the past 2 weeks, which has become more persistent over the past couple days. Abdominal pain described as sharp, around bellybutton, nonradiating, without any alleviating or
exacting factors. Patient's medical history significant recent admission to the hospital where she was treated for pneumonia, along with chronic intermittent abdominal pain. Patient's surgical history significant for gastric bypass performed 15
years ago. Denies fever or chills. Denies vomiting or diarrhea. Denies trauma. Denies recent change in diet.
Physical Exam
General: mild distress, not acutely ill. afebrile
Head: nc/at. eomi
Neck: supple. normal range of motion.
Heart: s1/s2 regular rate and rhythm
Lungs: no acute respiratory distress. clear bilaterally
Abdomen: normal bowel sounds. not tender. no distention
Neuro: alert and oriented x 3. no focal neurological deficits
Skin: no rash
Psychiatric: well kept. interactive and cooperative
Extremities: no edema. no calf tenderness.
CT abdomen pelvis report reviewed and discussed with patient. Awaiting evaluation by surgery, Dr. Salcedo, who has been notified via [facility] text.
Patient evaluated by surgery who recommends patient to be transferred to bariatric hospital for treatment.
Discussed with surgery at [facility] () who agreed to accept transfer.
Transfer consent on the chart.
Discharge Plan
Departure
Patient Disposition: Acute Care Hospital
Date of Disposition: 09/30/25
Time of Disposition: 11:47
Patient with high blood pressure during this ER visit?: Yes
Discharge Problem:
Intussusception
Prescriptions:
No Action
multivitamin Tablet
1 tab PO DAILY
fluoxetine 40 mg Capsule
40 mg PO DAILY
pravastatin 40 mg Tablet
40 mg PO HS
donepezil 10 mg Tablet
10 mg PO DAILY
pantoprazole [Protonix] 40 mg Tablet,Delayed Release (Dr/Ec)
40 mg PO DAILY
vitamin B complex Tablet
1 tab PO DAILY
aspirin 81 mg Tablet
81 mg PO DAILY
lisinopril-hydrochlorothiazide 10-12.5 mg Tablet
1 tab PO DAILY
gabapentin 300 mg Tablet
900 mg PO HS
doxycycline hyclate 100 mg Capsule
100 mg PO BID 7 Days Qty: 14 0RF
dextromethorphan-guaifenesin 10-100 mg/5 mL Syrup
10 ml PO Q4HPRN PRN (Reason: cough) Qty: 0 0RF
cefdinir 300 mg Capsule
300 mg PO Q12 7 Days Qty: 14 0RF
Referrals:
Barb Bradshaw PA-C [Family Provider, Family Practice]
Hospital Transfer
Other hospital: [facility]
I certify that the patient requires transfer: Yes
Discussed case with accepting physician: Dr. Delgadillo
Reason for transfer: higher level of care and specialties available
Interventions
Interventions:
*Risk Screen - Suicide Last Done: 09/30/25 06:25
*General Assessment Last Done: 09/30/25 08:30
*Neglect/Abuse Screening Last Done: 09/30/25 06:25
*ED COVID-19 Vaccine History Last Done: 09/30/25 08:30
*ED Influenza Vaccine History Last Done: 09/30/25 08:30
*Nursing Disposition Last Done: 09/30/25 18:33
VD-Rrwqjg-Oilqaytafx Assessment Last Done: 09/30/25 09:30
Discharge Date and Time
Discharge Date/Time: 09/30/25 18:34
Print Language: KOREAN
[2025-09-30] MEDS: SOLU-CORTEF 200 MG IV (08:43)
[2025-09-30] MEDS: BENADRYL 50 MG IV (08:44)
[2025-09-30 08:51] LABS: Hematocrit 32.8 % (37.0-47.0); Hemoglobin 10.2 g/dL (12.0-16.0); Mean Corp Hgb Conc. 31.1 g/dL (33.0-37.0); Mean Corpuscular Volume 85.9 fL (81.0-99.0); Nucleated Red Blood Cells % 0 %; Platelet Count 255 10^3/uL (130-400); Red Cell Dist. Width 15.9 % (11.5-14.5)
[2025-09-30 08:58] LABS: Urine Character Clear (Clear)
[2025-09-30 09:06] LABS: Urine Squamous Cell 16-20 /LPF (Few)
[2025-09-30 09:15] LABS: ALT (SGPT) 32 U/L (0-35); AST (SGOT) 33 U/L (14-36); Albumin 3.8 g/dl (3.5-5.0); Alkaline Phosphatase 61 U/L (38-126); Blood Urea Nitrogen 27 mg/dl (7-17); Calcium 9.4 mg/dl (8.4-10.2); Carbon Dioxide 27 mmol/L (22-30); Chloride 103 mmol/L (98-107); Estimated Creatinine Clearance 57 ml/min; Glucose 103 mg/dl (70-99); Lipase 155 U/L (23-300); Potassium 4.2 mmol/L (3.5-5.1); Sodium 135 mmol/L (135-145); Total Protein 6.9 g/dl (6.3-8.2); Troponin I < 0.012 ng/ml; eGFR > 60.00
--- NOTE | 2025-09-30 12:00 | CON.GS ---
Addendum entered and electronically signed by Chris Salcedo MD 09/30/25 14:48:
I saw and examined the patient independently.
The Machine Zipper Trimmer's note was reviewed and I agree with the note, assessment and plan except where noted below.
Comment: This is a 74-year-old female with a history of a Sidra-en-Y gastric bypass, thought to be done laparoscopically at our bariatric clinic that has since closed. She has not had any bariatric follow-up since then. She also has a known ventral
hernia repair possible mesh with recurrence small recurrence noted on exam. She presents with intermittent but chronic abdominal pain, nausea and vomiting for several months worse over the past few days which prompted her to visit our ED. Here a
CT scan was performed which demonstrated an intussuscepted loop of small bowel at the JJ without significant dilation of the remnant stomach.
No acute surgical intervention warranted. I did discuss options here including diagnostic laparoscopy but we both felt the best would be to get the patient to a bariatric service which the ED will initiate.
For now, n.p.o., IV fluids, PPI.
No role for antibiotics at this time.
I spent 60 minutes in total for the care of this patient today including direct patient care and counseling, reviewing labs, imaging, coordination of care, as well as documentation.
Original Note:
Consultation
-
Date/Time Consultation Performed: 09/30/2025 1115
Requesting Provider: Thaddeus
Reason for Consultation: intussuseption
Medical History
-
Chief Complaint: n/v/epigastric pain
History of Present Illness:
Ms Peralta is a 74 yo female with a h/o recent treatment for PNA (admitted 09/10-09/13, completed abx), Carias's esophagus, sidra en y gastric bypass done laparoscopically at the [facility] in [facility] (now closed) and subsequent open ventral
hernia repair (supraumbilical) who notes that over the past months she has had intermittent upper abdominal pain with nausea and vomiting. Over the past weeks, these intermittent symptoms have worsened and become more frequent. Today, she presents
to the ED at the urging of her daughters for evaluation as pain has become quite persistent with frequent bouts of emesis. She is mildly tender to the epigastrium and upper left abdomen. Recurrence of hernia is noted on exam but soft/reducible.
Past Medical History
Past Medical History: GERD (Carias's (known to Dr. Garza)), HTN, Hypercholesterolemia and Psychiatric (depression)
Past Surgical History: Bariatric (lap sidra en y gastric bypass approx 15 years ago), Hernia Repair (ventral (upper midline incision noted)), Orthopedic (Right CHIDI, lumbar laminectomy, trigger finger release) and Other (breast implants)
Social History
Tobacco: Former Smoker
Alcohol: Former
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
Living: With Family
Family History
Family History: Reviewed & Not Pertinent
Allergies / Home Medications
Allergy/AdvReac Type Severity Reaction Status Date / Time
Iodinated Contrast Media Allergy Hives Verified 09/30/25 06:29
�Medication �Instructions �Recorded �Confirmed �Type
aspirin 81 mg tablet 81 mg PO DAILY Blood clot 12/25/22 09/10/25 History
prevention/tx
donepezil 10 mg tablet 10 mg PO DAILY Neurological 12/25/22 09/10/25 History
Condition
fluoxetine 40 mg capsule 40 mg PO DAILY Mental 12/25/22 09/10/25 History
Health/Anxiety
gabapentin 300 mg tablet 900 mg PO HS Neurological Condition 12/25/22 09/10/25 History
lisinopril 10 1 tab PO DAILY Blood pressure 12/25/22 09/10/25 History
mg-hydrochlorothiazide 12.5 mg
tablet
multivitamin 1 tab PO DAILY Supplement 12/25/22 09/10/25 History
pantoprazole 40 mg tablet,delayed 40 mg PO DAILY Gastrointestinal 12/25/22 09/10/25 History
release (Protonix) issue
pravastatin 40 mg tablet 40 mg PO HS High cholesterol 12/25/22 09/10/25 History
vitamin B complex 1 tab PO DAILY Supplement 12/25/22 09/10/25 History
cefdinir 300 mg capsule 300 mg PO Q12 7 days #14 caps 09/13/25 Rx
dextromethorphan-guaifenesin 10 10 ml PO Q4HPRN PRN cough #0 mL 09/13/25 Rx
mg-100 mg/5 mL oral syrup
doxycycline hyclate 100 mg capsule 100 mg PO BID 7 days #14 caps 09/13/25 Rx
Review of Systems
-
History Source: Patient
All other systems: Negative unless noted
A 10 point review of systems was completed, and was negative except as per HPI.
Physical Exam
Vital Signs
Temp Pulse Resp BP Pulse Ox
97.7 F 69 16 143/103 97
09/30/25 06:25 09/30/25 10:00 09/30/25 10:00 09/30/25 10:00 09/30/25 10:00
09/29/25 09/30/25 10/01/25
05:59 06:59 06:59
Actual Weight 53 kg
Body Mass Index (BMI) 25.3
Lab Results
09/30/25 08:39
09/30/25 08:39
WBC 6.7 10^3/uL (4.8-10.8) 09/30/25 08:39
Hgb 10.2 g/dL (12.0-16.0) L 09/30/25 08:39
Hct 32.8 % (37.0-47.0) L 09/30/25 08:39
Plt Count 255 10^3/uL (130-400) 09/30/25 08:39
Abs Immat Gran (auto) 0.0 10^3/uL (0-0.05) 09/30/25 08:39
Neutrophils % 64.7 % (42.2-75.2) 09/30/25 08:39
Physical Exam
General: Well Developed and Well Nourished
HEENT: Normocephalic and Moist Mucous Membranes
Respiratory: Non Labored Respirations
GI: Soft, Non Distended, Tender (mild to epigastrium/luq) and Other (recurrence of upper abdominal ventral hernia, soft/reducible)
Skin: Warm and Dry
Psych: Calm
Data Reviewed
-
CT Scan: Image Personally Visualized and interpreted, Report Reviewed by me, Discussed with Physician, Discussed with Patient and Discussed with Family
Labs: Labs Reviewed by me, Discussed with Physician, Discussed with Patient and Discussed with Family
Old Records: Reviewed
Assessment / Plan
-
74 yo female with a h/o recent treatment for PNA, lap sidra en y gastric bypass done laparoscopically approx 15 years ago and subsequent open ventral hernia repair (supraumbilical) who notes that over the past months she has had intermittent upper
abdominal pain with nausea and vomiting. Over the past weeks, these intermittent symptoms have worsened and become more frequent. She now presents with persistent upper abdominal discomfort with recurrent emesis. Afebrile, VSS. CT imaging reviewed
with intussuseption suspected, likely involvement of bypass anatomy.
Plan:
Would recommend surgical correction, ideally at a bariatric center
D/W ED provider, will try to arrange transfer from ED to ED
Ok to hold on NGT placement
Keep NPO
[2025-09-30] MEDS: NSS 500 IV (13:58)
[2025-09-30] MEDS: TORADOL 15 MG IV (13:58)
== END 2025-09-30 18:34 | disposition short-term general hospital (02) ==
LOC: EMR 06:22
PROVIDERS: Physician Assistant Medical; EMERGENCY PHYSICIAN Emergency Medicine; FAMILY PHYSICIAN Physician Assistant Medical
DX: K56.1 Intussusception (principal); I10 Essential (primary) hypertension; E78.00 Pure hypercholesterolemia, unspecified; Z46.59 Encounter for fitting and adjustment of other gastrointestinal appliance and device; Z79.899 Other long term (current) drug therapy; Z83.49 Family history of other endocrine, nutritional and metabolic diseases; Z87.01 Personal history of pneumonia (recurrent); Z87.19 Personal history of other diseases of the digestive system; Z87.891 Personal history of nicotine dependence; Z96.641 Presence of right artificial hip joint; Z98.82 Breast implant status; Z98.84 Bariatric surgery status
CPT/HCPCS: 99284; 96374; 96375; 96361; 74177; 80053; 81003; 81015; 83690; 84484; 85025; 87086; 93005; Q9967

== ENCOUNTER → 2025-10-13 10:15 | Outpatient (REF) | payer MEDICARE, SELFPAY | LOC: MRI 3T 10:15 | PROVIDERS: ATTENDING PHYSICIAN Psychiatry & Neurology Neurology; FAMILY PHYSICIAN Physician Assistant Medical | DX: R41.3 Other amnesia (principal) | CPT/HCPCS: 70551 ==

== ENCOUNTER → 2025-10-15 09:13 | Outpatient (REF) | payer MEDICARE, SELFPAY | LOC: HWRAD 09:13 | PROVIDERS: ATTENDING PHYSICIAN Physician Assistant Medical | DX: R93.89 Abnormal findings on diagnostic imaging of other specified body structures (principal) | CPT/HCPCS: 71250 ==